=== PATIENT | male | born 1945 | race Caucasian/White ===

== ENCOUNTER 2016-07-15 19:32 | Inpatient (IN) | payer OTHER ==
[~2016-07-15] VITALS: Ht 172.7 cm; Wt 122.5 kg
[2016-07-15] MEDS ORDERED: ACETAMINOPHEN 500 MG TABLET PO ONE (20:00)
[2016-07-15] MEDS ORDERED: IV NORMAL SALINE 1000ML BAG 1,000 ML IV ONE ×2 (20:00)
[2016-07-15] MEDS ORDERED: CEFTRIAXONE 1GM IVPB FOR OMNI 50 ML IV ONE (20:00)
[2016-07-15 20:16] LABS: BASO % 1 % (0-3); EOS % 1 % (0-3); LYMPH # 0.8 x10^3/uL (1.0-4.8); LYMPH % 12 % (24-48); MEAN CORPUSCULAR HEMOGLOBIN 32 pg (25-35); MEAN CORPUSCULAR HGB CONC 33 g/dL (31-37); MEAN CORPUSCULAR VOLUME 95 fL (79-100); MONO % 12 % (0-9); NEUT % 75 % (31-73); PLATELET COUNT 189 x10^3/uL (140-400); RED BLOOD COUNT 4.44 x10^6/uL (4.30-5.70); RED CELL DISTRIBUTION WIDTH 13.2 % (11.5-14.5); WHITE BLOOD COUNT 7.4 x10^3/uL (4.0-11.0)
[2016-07-15 20:27] LABS: CALCIUM 8.8 mg/dL (8.5-10.1); CREATININE 0.9 mg/dL (0.7-1.3); GFR 83.7; POTASSIUM 4.1 mmol/L (3.5-5.1)
[2016-07-15 20:30] LABS: BILIRUBIN,URINE NEGATIVE (NEG); GLUCOSE,URINE NEGATIVE (NEG); NITRITE,URINE NEGATIVE (NEG); PH,URINE 7.5; PROTEIN,URINE NEGATIVE (NEG-TRACE); UROBILINOGEN,URINE 0.2 mg/dL (0.2 mg/dL)
[2016-07-15 20:33] LABS: ALBUMIN 3.8 g/dL (3.4-5.0); ALBUMIN/GLOBULIN RATIO 1.1 (1.0-1.7); TOTAL BILIRUBIN 0.5 mg/dL (0.2-1.0); TOTAL PROTEIN 7.2 g/dL (6.4-8.2)
[2016-07-15 20:56] LABS: OBC FLU VALID
[2016-07-15 20:58] LABS: BACTERIA,URINE 0 /HPF (0-FEW); RBC,URINE OCC /HPF (0-2); SQUAMOUS EPITHELIAL CELL,UR OCC /LPF; WBC,URINE OCC /HPF (0-4)
[2016-07-15] MEDS ORDERED: ACETAMINOPHEN 325 MG TABLET. PO PRN (21:45)
[2016-07-15] MEDS ORDERED: ONDANSETRON PF 4 MG/2 ML VIAL. IV PRN (21:45)
--- NOTE | 2016-07-15 22:15 | PHYS DOC ---
Past Medical History Past Medical History: GERD, High Cholesterol, Other Additional Past Medical Histor: pre diabetes, protein in urine Past Surgical History: Knee Replacement Alcohol Use: Heavy Additional Information: a beer every day Drug Use: None Adult General Chief Complaint Chief Complaint: Congestion HPI HPI 71-year-old male presents with several day history of progressive cough and congestion. He states he is had fever and chills today. He states his temperature was as high as 103 at home. He also complains of body aches. He states his cough is productive of meyer sputum. He states no one else at home is been sick. [] Review of Systems Review of Systems Constitutional: Denies fever or chills [] Eyes: Denies change in visual acuity, redness, or eye pain [] HENT: Denies nasal congestion or sore throat [] Respiratory: Per history of present illness [] Cardiovascular: No additional information not addressed in HPI [] GI: Denies abdominal pain, nausea, vomiting, bloody stools or diarrhea [] : Denies dysuria or hematuria [] Musculoskeletal: Denies back pain or joint pain [] Integument: Denies rash or skin lesions [] Neurologic: Denies headache, focal weakness or sensory changes [] Endocrine: Denies polyuria or polydipsia [] Current Medications Current Medications Current Medications Medications (Trade) Dose Ordered Sig/Joanie Start Time Stop Time Status Last Admin Dose Admin Acetaminophen 1000 mg 1,000 mg 1X ONCE 07/15/16 20:00 07/15/16 20:03 DC 07/15/16 20:18 1,000 MG Ceftriaxone Sodium 50 ml @ 100 mls/hr 1X ONCE 07/15/16 20:00 07/15/16 20:29 DC 07/15/16 20:18 100 MLS/HR Sodium Chloride (Iv Sodium Chloride 0.9% 1000ml Bag) 1,000 ml @ 1,000 mls/hr 1X ONCE 07/15/16 20:00 07/15/16 20:59 DC 07/15/16 21:38 1,000 MLS/HR Allergies Allergies Allergies Coded Allergies Type Severity Reaction Last Updated Verified amoxicillin Allergy Intermediate 07/15/16 Yes azithromycin Allergy Intermediate 07/15/16 Yes ciprofloxacin Allergy Intermediate 07/15/16 Yes Physical Exam Physical Exam Constitutional: Well developed, well nourished, no acute distress, non-toxic appearance. [] HENT: Normocephalic, atraumatic, bilateral external ears normal, oropharynx moist, no oral exudates, nose normal. [] Eyes: PERRLA, EOMI, conjunctiva normal, no discharge. [] Neck: Normal range of motion, no tenderness, supple, no stridor. [] Cardiovascular:Heart rate regular rhythm, no murmur [] Lungs & Thorax: Bilateral breath sounds clear to auscultation [] Abdomen: Bowel sounds normal, soft, no tenderness, no masses, no pulsatile masses. [] Skin: Warm, dry, no erythema, no rash. [] Back: No tenderness, no CVA tenderness. [] Extremities: No tenderness, no cyanosis, no clubbing, ROM intact, no edema. [] Neurologic: Alert and oriented X 3, normal motor function, normal sensory function, no focal deficits noted. [] Psychologic: Affect normal, judgement normal, mood normal. [] Current Patient Data Vital Signs Vital Signs Date Time Temp Pulse Resp B/P Pulse Ox O2 Delivery O2 Flow Rate FiO2 07/15/16 21:22 99.5 107 22 140/75 96 Room Air 99.5 Lab Values Laboratory Tests Test 07/15/16 19:46 07/15/16 19:55 07/15/16 19:58 07/15/16 20:00 Urine Color Yellow Urine Clarity Clear Urine pH 7.5 Urine Specific [place] 1.015 Urine Protein Negativemg/dL (NEG-TRACE) Urine Glucose (UA) Negativemg/dL (NEG) Urine Ketones (Stick) Negativemg/dL (NEG) Urine Blood Negative (NEG) Urine Nitrite Negative (NEG) Urine Bilirubin Negative (NEG) Urine Urobilinogen Dipstick 0.2mg/dL (0.2 mg/dL) Urine Leukocyte Esterase Negative (NEG) Urine RBC Occ/HPF (0-2) Urine WBC Occ/HPF (0-4) Urine Squamous Epithelial Cells Occ/LPF Urine Bacteria 0/HPF (0-FEW) Urine Mucus Slight/LPF Influenza Type A Antigen Negative (NEGATIVE) Influenza Type B Antigen Negative (NEGATIVE) Sodium Level 142mmol/L (136-145) Potassium Level 4.1mmol/L (3.5-5.1) Chloride Level 105mmol/L (98-107) Carbon Dioxide Level 28mmol/L (21-32) Anion Gap 9 (6-14) Blood Urea Nitrogen 15mg/dL (8-26) Creatinine 0.9mg/dL (0.7-1.3) Estimated GFR (Cockcroft-Gault) 83.7 BUN/Creatinine Ratio 17 (6-20) Glucose Level 108mg/dL (70-99) H Calcium Level 8.8mg/dL (8.5-10.1) Total Bilirubin 0.5mg/dL (0.2-1.0) Aspartate Amino Transferase (AST) 15U/L (15-37) Alanine Aminotransferase (ALT) 31U/L (16-63) Alkaline Phosphatase 52U/L (46-116) Total Protein 7.2g/dL (6.4-8.2) Albumin 3.8g/dL (3.4-5.0) Albumin/Globulin Ratio 1.1 (1.0-1.7) White Blood Count 7.4x10^3/uL (4.0-11.0) Red Blood Count 4.44x10^6/uL (4.30-5.70) Hemoglobin 14.0g/dL (13.0-17.5) Hematocrit 42.0% (39.0-53.0) Mean Corpuscular Volume 95fL (79-100) Mean Corpuscular Hemoglobin 32pg (25-35) Mean Corpuscular Hemoglobin Concent 33g/dL (31-37) Red Cell Distribution Width 13.2% (11.5-14.5) Platelet Count 189x10^3/uL (140-400) Neutrophils (%) (Auto) 75% (31-73) H Lymphocytes (%) (Auto) 12% (24-48) L Monocytes (%) (Auto) 12% (0-9) H Eosinophils (%) (Auto) 1% (0-3) Basophils (%) (Auto) 1% (0-3) Neutrophils # (Auto) 5.5x10^3uL (1.8-7.7) Lymphocytes # (Auto) 0.8x10^3/uL (1.0-4.8) L Monocytes # (Auto) 0.9x10^3/uL (0.0-1.1) Eosinophils # (Auto) 0.0x10^3/uL (0.0-0.7) Basophils # (Auto) 0.0x10^3/uL (0.0-0.2) Lactic Acid Level 1.4mmol/L (0.4-2.0) Laboratory Tests 07/15/16 20:00 Laboratory Tests 07/15/16 19:58 EKG EKG [EKG: Sinus tachycardia rate of [address]-T changes] Radiology/Procedures Radiology/Procedures [] Impressions: Chest x-ray: Negative exam as interpreted by me Course & Med Decision Making Course & Med Decision Making Pertinent Labs and Imaging studies reviewed. (See chart for details) [71-year-old male presented to the emergency department with several concerning symptoms including fever and tachycardia. He also had respiratory issues. He was given DuoNeb treatments and IV fluids and did feel better but he was still a bit hypoxic and tachycardic. I did not note an elevated white blood cell count and his chest x-ray was clear. Given the fact that he remained tachycardic I felt like it was in his best interest to stay in the hospital for further evaluation and aggressive respiratory treatments. With Dr. Campbell who agreed to accept the patient for admission.] Dragon Disclaimer Dragon Disclaimer This electronic medical record was generated, in whole or in part, using a voice recognition dictation system. Departure Departure Impression: Primary Impression: Bronchitis Disposition: 09 ADMITTED INPATIENT Admitting Physician: Nathaniel Llanes Condition: STABLE Referrals: NATHANIEL CAMPBELL MD (PCP) VERENICE PICHARDO DO Jul 15, 2016 22:15
--- NOTE | 2016-07-15 23:05 | ACF ---
Admission Forms Criteria TELEMETRY CARE Telemetry Admission Guidelines (Place 'X' for any and all applicable criteria): Admission to telemetry [A] may be indicated for ANY ONE of the following(1)(2)(3 )(4)(5): [X]I. Cardiac disease, including ANY ONE of the following (9)(10)(11)(12)(13 ): [ ]a) Postacute ND [ ]b) Low-risk patients with ST-segment elevation ND who have undergone successful percutaneous coronary intervention [ ]c) Unstable angina [ ]d) Suspected ND (until it is ruled out) [ ]e) Post cardiac surgery (first 48 to 72 hours unless complications occur) [X]f) Acute arrhythmias (including significant tachycardia or bradycardia) [B] [ ]g) Firing of an implantable cardioverter defibrillator [C] [ ]h) Suspected pacemaker or implantable cardioverter defibrillator malfunction (10) [ ]i) New administration or adjustment of an antiarrhythmic drug [D ] [ ]j) Child admitted for acute congestive heart failure [ ]j) Long QT syndrome [ ]k) Advanced heart block (eg, second-degree Mobitz type II, third- degree heart block) [ ]l) Acute myocarditis or pericarditis [ ]m) Short-term (ambulatory or inpatient) monitoring after a cardiac procedure as indicated by ANY ONE of the following [E]: [ ]i) Electrophysiologic studies [ ]ii) Percutaneous coronary intervention with stent placement [ ]iii) Pacemaker placement with cardiac conduction defect [ ]iv) Implantable cardiac defibrillator placement [ ]II. Drug overdose or poisoning with substance that causes arrhythmias or QT prolongation (eg, phenothiazines, sympathomimetic agents, cyclic antidepressants, digitalis, antiarrhythmic drugs)(15) [ ]III. Short-term (ambulatory or inpatient) monitoring after therapeutic or diagnostic procedure requiring conscious sedation or anesthesia (eg, endoscopy, elective cardioversion) [ ]IV. Acute cerebrovascular even[F](18) [ ]V. Massive blood transfusion (eg, at least 10 units of packed red blood cells in 24 hours) [ ]. Variceal bleeding after endoscopy, sclerotherapy, or IV vasopressin [ ]VII. Uncorrected electrolyte abnormalities associated with an increased risk of dangerous arrhythmia [G]; examples include [ ]a) Hyperkalemia with attributable ECG changes [ ]b) Potassium greater than 6.5 mmol/L (mEq/L) in a patient without history of chronic renal disease [ ]c) Prolonged QT attributed to hypokalemia, hypomagnesemia, or hypocalcemia [ ]VIII.Unexplained syncope or other neurologic event suspected of being due to arrhythmia due to a finding that increases risk; examples include(19)(20)(21): [ ]a) High-risk ECG findings (eg, bifascicular block, bradycardia, abnormal QT interval, ventricular pre- excitation) [ ]b) History of previous syncope due to arrhythmia [ ]c) Abnormal ventricular function (eg, reduced ejection fraction ) [ ]d) Exertional or supine syncope [ ]e) Concerning syncope characteristics (eg, sudden loss of consciousness without prodrome) [ ]f) Family history of sudden [ ]g) Use of arrhythmogenic medication [ ]h) Suspected cardiac ischemia [ ]i) Known channelopathy (eg, long QT syndrome, Brugada syndrome, or catecholaminergic paroxysmal ventricular tachycardia) [ ]j) Known structural heart disease (eg, hypertrophic cardiomyopathy , severe valvular disease) [ ]k) Palpitations preceding syncope The original [employer] content created by [employer] has been revised. The portions of the content which have been revised are identified through the use of italic text or in bold, and [employer] has neither reviewed nor approved the modified material. All other unmodified content is copyright [employer]. Please see references footnoted in the original [employer] edition 2016 Admission Criteria Met?: Yes ALTHEA MCKENZIE Jul 15, 2016 23:05
[2016-07-15] MEDS: IV NORMAL SALINE 1000ML BAG 1,000 ML IV SCH (23:34)
[2016-07-15] MEDS ORDERED: METF500T4 PO (23:58)
[2016-07-15] MEDS ORDERED: ESOM40CA PO (23:58)
[2016-07-15] MEDS ORDERED: ENAL10TA PO (23:58)
[2016-07-15] MEDS ORDERED: ASPI81TA2 PO (23:58)
[2016-07-15] MEDS ORDERED: UBID200C4 PO (23:58)
[2016-07-15] MEDS ORDERED: PRAV40TA2 PO (23:58)
[2016-07-16] VITALS (8 sets, daily range): BP systolic 95–141; BP diastolic 72–92
[2016-07-16] MEDS: IBUPROFEN 600 MG TABLET. PO PRN ×2 (00:29→09:12)
[2016-07-16 05:28] LABS: BASO % 1 % (0-3); EOS % 1 % (0-3); HEMATOCRIT 39.3 % (39.0-53.0); HEMOGLOBIN 13.2 g/dL (13.0-17.5); LYMPH # 0.9 x10^3/uL (1.0-4.8); LYMPH % 12 % (24-48); MEAN CORPUSCULAR HEMOGLOBIN 31 pg (25-35); MEAN CORPUSCULAR HGB CONC 34 g/dL (31-37); MEAN CORPUSCULAR VOLUME 93 fL (79-100); MONO % 10 % (0-9); NEUT % 77 % (31-73); PLATELET COUNT 172 x10^3/uL (140-400); RED BLOOD COUNT 4.21 x10^6/uL (4.30-5.70); RED CELL DISTRIBUTION WIDTH 13.3 % (11.5-14.5); WHITE BLOOD COUNT 7.3 x10^3/uL (4.0-11.0)
[2016-07-16] MEDS: IV NORMAL SALINE 1000ML BAG 1,000 ML IV SCH ×3 (05:39→19:45)
[2016-07-16 05:47] LABS: CALCIUM 8.3 mg/dL (8.5-10.1); CREATININE 0.8 mg/dL (0.7-1.3); GFR 95.8; POTASSIUM 4.2 mmol/L (3.5-5.1)
--- NOTE | 2016-07-16 07:07 | EKG ---
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 INCOMPLETE RBBB MISSING LEAD V4 Electronically Signed On 07-17-2016 20:50:52 CDT by April Blank
--- NOTE | 2016-07-16 07:57 | RAD ---
Indication: Fever. Technique: AP portable chest radiograph was obtained. Comparison is from October 05, 2014. Findings: The lungs are clear. The heart is not enlarged allowing for portable technique. There is no heart failure. Bony structures are intact. Leads overlie the patient. Impression: No acute thoracic findings.
[2016-07-16] MEDS: IPRATRPIUM/ALBUTEROL 0.5/2.5MG 3 ML NEBU. NEB SCH ×4 (08:41→20:52)
--- NOTE | 2016-07-16 13:54 | PDOC ---
Provider Note Provider Note see admission H&P dictation # GRABIEL VOSS MD Jul 16, 2016 13:54
[2016-07-16] MEDS ORDERED: ALBUTEROL SULFATE 2.5 MG/3 ML NEBU. NEB PRN (14:00)
[2016-07-16] MEDS ORDERED: GUAIFENESIN/CODEINE 100mg/10mg 5 ML LIQUID. PO PRN ×2 (14:00)
[2016-07-16] MEDS: PREDNISONE 10 MG TABLET PO SCH (14:09)
[2016-07-16] MEDS: UBIDECARENONE 50 MG CAPSULE. PO SCH (14:10)
[2016-07-16] MEDS: PANTOPRAZOLE 40 MG TABLET. PO SCH (14:10)
[2016-07-16] MEDS: LISINOPRIL 10 MG TABLET PO SCH (14:11)
[2016-07-16] MEDS: GUAIFENESIN DM 200MG/20MG 10 ML SYRUP. PO PRN (15:59)
[2016-07-16] MEDS ORDERED: CEFTRIAXONE SODIUM 1 GM in IV NORMAL SALINE 50ML 50 ML IV SCH (20:00)
[2016-07-16] MEDS ORDERED: ATORVASTATIN CALCIUM 10 MG TABLET. PO SCH (21:00)
[2016-07-16] MEDS ORDERED: ASPIRIN 81 MG TAB.CHEW PO SCH (21:00)
[2016-07-17 03:38] VITALS: BP 134/88
[2016-07-17 07:00] VITALS: BP 133/77
[2016-07-17] MEDS: IPRATRPIUM/ALBUTEROL 0.5/2.5MG 3 ML NEBU. NEB SCH ×3 (07:06→15:00)
[2016-07-17] MEDS: PANTOPRAZOLE 40 MG TABLET. PO SCH (07:21)
[2016-07-17] MEDS ORDERED: METFORMIN 500 MG TABLET. PO SCH (08:00)
--- NOTE | 2016-07-17 08:17 | PDOC ---
OBJECTIVE Vital Signs Vital Signs Date Time Temp Pulse Resp B/P Pulse Ox O2 Delivery O2 Flow Rate FiO2 07/17/16 07:07 96 Room Air 07/17/16 07:00 98.6 101 16 133/77 94 Room Air 98.6 07/17/16 03:38 98.3 94 20 134/88 95 Room Air 98.3 07/16/16 23:00 98.5 112 18 122/82 96 Room Air 98.5 07/16/16 20:53 97 Room Air 07/16/16 20:53 97 Room Air 07/16/16 19:45 Room Air 07/16/16 19:31 98.4 100 20 136/79 95 Room Air 98.4 07/16/16 15:31 Room Air 07/16/16 15:00 98.7 97 16 95/72 93 Room Air 98.7 07/16/16 14:11 108 133/83 07/16/16 11:14 Room Air 07/16/16 10:57 98.8 108 16 133/83 93 Room Air 98.8 07/16/16 08:44 95 Room Air 07/16/16 08:25 Room Air I & O Intake and Output 07/17/16 07:00 Intake Total 1270 ml Output Total 550 ml Balance 720 ml Intake Oral 1270 ml Output Urine Total 550 ml # Voids 3 ASSESSMENT/PLAN Assessment/Plan 1. COPD exacerbation Problems: GRABIEL VOSS MD Jul 17, 2016 08:17
[2016-07-17] MEDS: UBIDECARENONE 50 MG CAPSULE. PO SCH (09:01)
[2016-07-17] MEDS: LISINOPRIL 10 MG TABLET PO SCH (09:02)
[2016-07-17] MEDS: GUAIFENESIN DM 200MG/20MG 10 ML SYRUP. PO PRN ×2 (09:03→14:06)
[2016-07-17] MEDS: PREDNISONE 10 MG TABLET PO SCH (09:03)
[2016-07-17 11:00] VITALS: BP 146/84
[2016-07-17 15:08] VITALS: BP 144/87
--- NOTE | 2016-07-17 15:28 | RAD ---
Indication: Dyspnea, cough, hemoptysis. Technique: Axial images and coronal and sagittal reformatted images are provided. No comparison is available. One or more of the following individualized dose reduction techniques were utilized for this examination: 1. Automated exposure control 2. Adjustment of the mA and/or kV according to patient size 3. Use of iterative reconstruction technique Findings: There are calcified granulomas. There is minimal atelectasis in the lung bases. There is no consolidation. There is no pleural effusion. Central airways are patent. There is atheromatous disease in the thoracic aorta. The heart is not enlarged. Coronary artery calcifications are noted. Calcified mediastinal and right hilar lymph nodes are present. Indeterminate low-density lesions within the liver measure up to 23 mm in size, statistically most likely cysts. There are benign calcifications in the spleen. There are mild degenerative changes in the spine. Impression: 1. Granulomatous disease. 2. No acute thoracic findings.
--- NOTE | 2016-07-17 18:11 | DISCH ---
DISCHARGE INSTRUCTIONS Condition on Discharge Condition on Discharge: Stable Activity After Discharge Activity Instructions for Disc: Activity as tolerated Diet after Discharge Diet after Discharge: No Added Sugar Contacting the [facility] after DC Call your doctor for: If your condition worsens Follow-Up Follow up with: Dr Campbell in 1-2 weeks Follow Up With: Repeat scan of liver in 2-3 months GRABIEL VOSS MD Jul 17, 2016 18:11
[2016-07-17] MEDS ORDERED: DOXY100T PO (18:28)
[2016-07-17] MEDS ORDERED: VENTOLIN HFA18 GM INH (18:28)
[2016-07-17] MEDS ORDERED: PRED20TA PO (18:28)
--- NOTE | 2016-07-17 18:29 | PDOC ---
Provider Note Provider Note See discharge summary dictation# GRABIEL VOSS MD Jul 17, 2016 18:29
== END 2016-07-17 19:41 | disposition home or self-care (01) | DRG 192 ==
LOC: ER 19:32 → 5 SOUTH 21:40
PROVIDERS: ADMIT Family Medicine; ATTEND Family Medicine
DX: J44.1 Chronic obstructive pulmonary disease with (acute) exacerbation (principal); E78.00 Pure hypercholesterolemia, unspecified; K21.9 Gastro-esophageal reflux disease without esophagitis; Z96.659 Presence of unspecified artificial knee joint; Z88.1 Allergy status to other antibiotic agents; Z79.899 Other long term (current) drug therapy
CPT/HCPCS: 36415; 71010; 71250; 80048; 80053; 81001; 83605; 85027; 87040; 87804; 93005; 94250; 94640; 94760; 96365; J0690; J0696; J7030; J7512; J7620; 99285-25

== ENCOUNTER → 2016-10-15 | Outpatient (CLI) | payer OTHER ==
[~2016-10-15] MED LIST: ASPI-630 PO; DOXY100T PO; ENAL10TA PO; ESOM40CA PO; METF500T4 PO; PRAV40TA2 PO; PRED20TA PO; UBID200C7 PO; VENTOLIN HFA18 GM INH
--- NOTE | 2016-10-15 16:24 | KCIC ---
Limited abdomen ultrasound HISTORY: Liver cyst. COMPARISON: None. FINDINGS: The inferior vena cava poorly visualized. Pancreas poorly visualized. Liver demonstrates coarse echogenicity, likely due to fatty infiltration. Small hypoechoic lesion of the liver near the gallbladder measures 16 mm diameter. This demonstrates some posterior acoustic enhancement and is compatible with a small cyst. No evidence of significant hepatomegaly. No evidence of cholelithiasis or gallbladder wall thickening. Right kidney measures 12.9 cm longitudinal without hydronephrosis. Common bile duct measures 2 mm diameter. IMPRESSION: 1. Small hepatic lesion most compatible with a small 16 mm cyst. 2. Findings compatible with fatty infiltration of the liver. Electronically signed by: Ceasar Bauman MD (10/15/2016 4:22 PM)
== END | disposition home or self-care (01) ==
LOC: KCIC US 09:15
PROVIDERS: ATTEND Family Medicine
DX: K76.89 Other specified diseases of liver (principal)
CPT/HCPCS: 76705

== ENCOUNTER → 2017-10-23 | Outpatient (CLI) | payer OTHER | END | disposition home or self-care (01) | LOC: KCIC US 07:40 | DX: K76.0 Fatty (change of) liver, not elsewhere classified (principal); E78.00 Pure hypercholesterolemia, unspecified; J44.1 Chronic obstructive pulmonary disease with (acute) exacerbation; R16.0 Hepatomegaly, not elsewhere classified | CPT/HCPCS: 76705 ==

== ENCOUNTER 2018-01-06 19:04 | Inpatient (IN) | payer OTHER ==
[~2018-01-06] VITALS: Ht 175.3 cm; Wt 130.7 kg
[~2018-01-06 19:04] MED LIST changes: +METF500T16 PO; -METF500T4 PO
[2018-01-06] MEDS ORDERED: IV NORMAL SALINE 1000ML BAG 1,000 ML IV SCH (19:25)
[2018-01-06] MEDS ORDERED: ACETAMINOPHEN 500 MG TABLET PO ONE (19:30)
--- NOTE | 2018-01-06 19:43 | PHYS DOC ---
Past Medical History Past Medical History: GERD, High Cholesterol, Other Additional Past Medical Histor: pre diabetes, protein in urine Past Surgical History: Knee Replacement Alcohol Use: Heavy Drug Use: None Adult General Chief Complaint Chief Complaint: FEVER HPI HPI Patient is a 72-year-old male who presents to the emergency department for evaluation. He states that since Friday, he has had low-grade fevers, he started with a mild sore throat, but that has improved, and then he developed nasal congestion, with a cough mostly productive of whitish sputum. He did not have any pain. His fever was elevated this morning, and a temperature of 101. He went to see his primary care provider's office today, and was given a dose of steroids by the nurse practitioner. She states that his lungs and ears look clear. The patient states he felt warm at home and checked his temperature and was 104. He does presents to the emergency department for evaluation. He denies any pain, has not had any nausea, vomiting, abdominal pain, chest pain, or any urinary symptoms. He denies any severe headache. He has not had any confusion or mental status changes. There are no alleviating, or exacerbating factors to his symptoms otherwise. He has not taken any antipyretics. He did just return from a cruise to [place] and the [facility], about a week ago. Review of Systems Review of Systems Constitutional: Denies lethargy or or chills [] Eyes: Denies change in visual acuity, redness, or eye pain [] HENT: Reports nasal congestion or sore throat [] Respiratory: Denies shortness of breath [] Cardiovascular:The patient denies any shortness of breath, chest pain, palpitations, or orthopnea [] GI: Denies abdominal pain, nausea, vomiting, bloody stools or diarrhea [] : Denies dysuria or hematuria [] Musculoskeletal: Denies back pain or joint pain [] Integument: Denies rash or skin lesions [] Neurologic: Denies headache, focal weakness or sensory changes [] Endocrine: Denies polyuria or polydipsia [] All other systems were reviewed and found to be within normal limits, except as documented in this note. Current Medications Current Medications Current Medications Medications (Trade) Dose Ordered Sig/Joanie Start Time Stop Time Status Last Admin Dose Admin Acetaminophen (Tylenol) 650 mg PRN Q4HRS PRN 01/06/18 20:45 9/5/18 20:44 Ceftriaxone Sodium 50 ml @ 100 mls/hr 1X ONCE 01/06/18 20:30 01/06/18 20:59 Doxycycline Hyclate 100 mg/ Dextrose 100 ml @ 50 mls/hr ONCE ONCE 01/06/18 20:30 01/06/18 22:29 Sodium Chloride 1,000 ml @ 1,000 mls/hr Q1H 01/06/18 19:25 01/06/18 20:24 DC 01/06/18 20:04 1,000 MLS/HR Allergies Allergies Allergies Coded Allergies Type Severity Reaction Last Updated Verified amoxicillin Allergy Intermediate 07/15/16 Yes azithromycin Allergy Intermediate 07/15/16 Yes ciprofloxacin Allergy Intermediate 07/15/16 Yes Physical Exam Physical Exam PHYSICAL EXAM: CONSTITUTIONAL: Well developed, well nourished HEAD: normocephalic, atraumatic EENT: PERRL, EOMI. Conjunctivae normal color, sclerae non-icteric; moist mucous membranes. Tympanic membranes are normal bilaterally. Oropharynx is nonerythematous. NECK: Supple, non-tender; no meningismus. LUNGS: Lungs CTA, breathing even and unlabored. Normal air movement. HEART: Regular tachycardia, no murmur CHEST: No deformity; non-tender ABDOMEN: The abdomen is soft, and non-tender, no masses or bruits. EXTREM: Normal ROM; no deformity, no calf tenderness. Normal pulses palpable in all extremities. There is no pedal edema. SKIN: No rash; no diaphoresis NEURO: Alert; normal speech and cognition; CN's grossly intact; strength grossly intact without focal deficit. BACK: No CVA TTP. Current Patient Data Vital Signs Vital Signs Date Time Temp Pulse Resp B/P (MAP) Pulse Ox O2 Delivery O2 Flow Rate FiO2 01/06/18 19:25 101.7 140 28 148/91 (110) 95 Room Air 101.7 Lab Values Laboratory Tests Test 01/06/18 19:51 01/06/18 20:05 Influenza Type A Antigen Negative (NEGATIVE) Influenza Type B Antigen Negative (NEGATIVE) White Blood Count 9.3 x10^3/uL (4.0-11.0) Red Blood Count 3.98 x10^6/uL (4.30-5.70) L Hemoglobin 13.2 g/dL (13.0-17.5) Hematocrit 38.2 % (39.0-53.0) L Mean Corpuscular Volume 96 fL (79-100) Mean Corpuscular Hemoglobin 33 pg (25-35) Mean Corpuscular Hemoglobin Concent 35 g/dL (31-37) Red Cell Distribution Width 13.2 % (11.5-14.5) Platelet Count 203 x10^3/uL (140-400) Neutrophils (%) (Auto) 78 % (31-73) H Lymphocytes (%) (Auto) 11 % (24-48) L Monocytes (%) (Auto) 10 % (0-9) H Eosinophils (%) (Auto) 1 % (0-3) Basophils (%) (Auto) 0 % (0-3) Neutrophils # (Auto) 7.2 x10^3uL (1.8-7.7) Lymphocytes # (Auto) 1.0 x10^3/uL (1.0-4.8) Monocytes # (Auto) 0.9 x10^3/uL (0.0-1.1) Eosinophils # (Auto) 0.1 x10^3/uL (0.0-0.7) Basophils # (Auto) 0.0 x10^3/uL (0.0-0.2) Sodium Level 135 mmol/L (136-145) L Potassium Level 3.7 mmol/L (3.5-5.1) Chloride Level 101 mmol/L (98-107) Carbon Dioxide Level 27 mmol/L (21-32) Anion Gap 7 (6-14) Blood Urea Nitrogen 14 mg/dL (8-26) Creatinine 0.8 mg/dL (0.7-1.3) Estimated GFR (Cockcroft-Gault) 95.6 BUN/Creatinine Ratio 18 (6-20) Glucose Level 117 mg/dL (70-99) H Lactic Acid Level 1.6 mmol/L (0.4-2.0) Calcium Level 8.7 mg/dL (8.5-10.1) Magnesium Level 1.7 mg/dL (1.8-2.4) L Total Bilirubin 0.4 mg/dL (0.2-1.0) Aspartate Amino Transferase (AST) 16 U/L (15-37) Alanine Aminotransferase (ALT) 32 U/L (16-63) Alkaline Phosphatase 61 U/L (46-116) Troponin I Quantitative < 0.017 ng/mL (0.000-0.055) Total Protein 7.2 g/dL (6.4-8.2) Albumin 3.7 g/dL (3.4-5.0) Albumin/Globulin Ratio 1.1 (1.0-1.7) Lipase 112 U/L (73-393) Laboratory Tests 01/06/18 20:05 Laboratory Tests 01/06/18 20:05 EKG EKG [Sinus tachycardia at a rate of 129 bpm with occasional PVCs, borderline left axis deviation, normal intervals. There are no acute ischemic ST/T changes] Radiology/Procedures Radiology/Procedures [PROCEDURE: CHEST PA & LATERAL Examination: 2 views of chest. HISTORY: History of fever COMPARISON: 10/05/2014 FINDINGS: The cardiomediastinal silhouette grossly appears unremarkable. Mild airspace opacity identified in the right middle lobe lung likely atelectasis or infiltrate. IMPRESSION: Mild right middle lobe lung airspace opacity likely atelectasis or infiltrate. Follow-up to resolution. ] Course & Med Decision Making Course & Med Decision Making Pertinent Labs and Imaging studies reviewed. (See chart for details) [8:35 PM: The patient's condition remains stable, although he still remains tachycardic, but remains normotensive. Some of his chemistries and his lactic acid are still pending. His chest x-ray doesn't demonstrate a right middle lobe pneumonia, I reviewed the film, there is obscuration of his right heart border. I spoke with the hospitalist, who accepted the patient to the hospital for further evaluation and treatment.] Dragon Disclaimer Dragon Disclaimer This electronic medical record was generated, in whole or in part, using a voice recognition dictation system. Departure Departure Impression: Primary Impression: Community acquired bacterial pneumonia Disposition: ADMITTED INPATIENT Admitting Physician: Dallas Reyes Condition: STABLE Referrals: NATHANIEL ROBERTS MD (PCP) ELLI MOTLEY MD Jan 06, 2018 19:43
[2018-01-06 20:17] LABS: BASO % 0 % (0-3); EOS # 0.1 x10^3/uL (0.0-0.7); EOS % 1 % (0-3); HEMATOCRIT 38.2 % (39.0-53.0); HEMOGLOBIN 13.2 g/dL (13.0-17.5); LYMPH % 11 % (24-48); MEAN CORPUSCULAR HEMOGLOBIN 33 pg (25-35); MEAN CORPUSCULAR HGB CONC 35 g/dL (31-37); MEAN CORPUSCULAR VOLUME 96 fL (79-100); MONO # 0.9 x10^3/uL (0.0-1.1); MONO % 10 % (0-9); NEUT # 7.2 x10^3uL (1.8-7.7); NEUT % 78 % (31-73); PLATELET COUNT 203 x10^3/uL (140-400); RED BLOOD COUNT 3.98 x10^6/uL (4.30-5.70); RED CELL DISTRIBUTION WIDTH 13.2 % (11.5-14.5); WHITE BLOOD COUNT 9.3 x10^3/uL (4.0-11.0)
--- NOTE | 2018-01-06 20:29 | RAD ---
Examination: 2 views of chest. HISTORY: History of fever COMPARISON: 10/05/2014 FINDINGS: The cardiomediastinal silhouette grossly appears unremarkable. Mild airspace opacity identified in the right middle lobe lung likely atelectasis or infiltrate. IMPRESSION: Mild right middle lobe lung airspace opacity likely atelectasis or infiltrate. Follow-up to resolution. Electronically signed by: Brandan Weaver MD (01/06/2018 8:26 PM) [facility]
[2018-01-06 20:30] LABS: CALCIUM 8.7 mg/dL (8.5-10.1); CREATININE 0.8 mg/dL (0.7-1.3); GFR 95.6; POTASSIUM 3.7 mmol/L (3.5-5.1)
[2018-01-06] MEDS ORDERED: DOXYCYCLINE HYCLATE 100 MG in IV DEXTROSE 5% 100ML 100 ML IV ONE (20:30)
[2018-01-06 20:32] LABS: INFLUENZA A PATIENT NEGATIVE (NEGATIVE); INFLUENZA B PATIENT NEGATIVE (NEGATIVE)
[2018-01-06 20:45] LABS: ALBUMIN 3.7 g/dL (3.4-5.0); ALBUMIN/GLOBULIN RATIO 1.1 (1.0-1.7); MAGNESIUM 1.7 mg/dL (1.8-2.4); TOTAL BILIRUBIN 0.4 mg/dL (0.2-1.0); TOTAL PROTEIN 7.2 g/dL (6.4-8.2)
[2018-01-06] MEDS ORDERED: ACETAMINOPHEN 325 MG TABLET. PO PRN (20:45)
[2018-01-06] MEDS ORDERED: IV NORMAL SALINE 1000ML BAG 1,000 ML IV ONE (21:00)
[2018-01-06 21:03] LABS: BILIRUBIN,URINE NEGATIVE (NEG); CLARITY,URINE CLEAR; COLOR,URINE YELLOW; NITRITE,URINE NEGATIVE (NEG); PH,URINE 7.5; PROTEIN,URINE NEGATIVE (NEG-TRACE); UROBILINOGEN,URINE 0.2 mg/dL (0.2 mg/dL)
[2018-01-06 21:14] LABS: BACTERIA,URINE 0 /HPF (0-FEW); RBC,URINE RARE /HPF (0-2); WBC,URINE 0 /HPF (0-4)
[2018-01-06 21:15] LABS: SQUAMOUS EPITHELIAL CELL,UR OCC /LPF
[2018-01-06 23:42] VITALS: BP 137/88
[2018-01-07 03:00] VITALS: BP 133/81
[2018-01-07 05:08] LABS: BASO % 0 % (0-3); EOS # 0.2 x10^3/uL (0.0-0.7); EOS % 2 % (0-3); HEMATOCRIT 39.1 % (39.0-53.0); HEMOGLOBIN 13.5 g/dL (13.0-17.5); LYMPH # 0.9 x10^3/uL (1.0-4.8); LYMPH % 10 % (24-48); MEAN CORPUSCULAR HEMOGLOBIN 34 pg (25-35); MEAN CORPUSCULAR HGB CONC 35 g/dL (31-37); MEAN CORPUSCULAR VOLUME 97 fL (79-100); MONO # 0.8 x10^3/uL (0.0-1.1); MONO % 10 % (0-9); NEUT # 6.7 x10^3uL (1.8-7.7); NEUT % 78 % (31-73); PLATELET COUNT 193 x10^3/uL (140-400); RED BLOOD COUNT 4.04 x10^6/uL (4.30-5.70); RED CELL DISTRIBUTION WIDTH 12.8 % (11.5-14.5); WHITE BLOOD COUNT 8.6 x10^3/uL (4.0-11.0)
--- NOTE | 2018-01-07 05:25 | EKG ---
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
[2018-01-07 05:52] LABS: CREATININE 0.7 mg/dL (0.7-1.3); GFR 111.5; POTASSIUM 4.4 mmol/L (3.5-5.1)
[2018-01-07] MEDS: DOXYCYCLINE HYCLATE 100 MG in IV DEXTROSE 5% 100ML 100 ML IV SCH ×2 (07:54→20:20)
[2018-01-07 07:58] VITALS: BP 136/89
[2018-01-07] MEDS ORDERED: ATOR20TA58 PO (10:35)
[2018-01-07] MEDS ORDERED: ALBUTEROL SULFATE 2.5 MG/3 ML NEBU. NEB PRN (11:00)
[2018-01-07] MEDS ORDERED: ONDANSETRON PF 4 MG/2 ML VIAL. IV PRN (11:00)
[2018-01-07] MEDS ORDERED: ACETAMINOPHEN 325 MG TABLET. PO PRN (11:00)
[2018-01-07] MEDS ORDERED: MORPHINE SULFATE 2 MG/ML VIAL. IV PRN (11:00)
[2018-01-07] MEDS ORDERED: DOCUSATE SODIUM 100 MG CAPSULE. PO PRN (11:00)
[2018-01-07] MEDS ORDERED: traMADol 50 MG TABLET PO PRN (11:00)
[2018-01-07 11:30] VITALS: BP 131/81
[2018-01-07] MEDS: PANTOPRAZOLE 40 MG TABLET.DR. PO SCH (11:41)
[2018-01-07] MEDS: metFORMIN 500 MG TABLET PO SCH (11:41)
[2018-01-07] MEDS: IPRATRPIUM/ALBUTEROL 0.5/2.5MG 3 ML NEBU. NEB SCH ×4 (12:00→19:57)
[2018-01-07] MEDS ORDERED: NON FORMULARY ITEM (Albuterol Sulfate (Ventolin Hfa Inhaler) 2 PUFF) INH SCH (13:00)
--- NOTE | 2018-01-07 13:17 | PDOC1 ---
History and Physical Date of Admission Date of Admission 01/07/18 Identification/Chief Complaint Chief Complaint cough Source Source: Chart review, Patient History of Present Illness History of Present Illness HPI HPI Patient is a 72-year-old male who presents to the emergency department for evaluation of cough. pt started to cough from 3ds ago, went to see PCP on Friday, got some shot pt said it is not abx, dced home without abx. He cont feels fever, 104 at home and feels fatigue, cont severe cough, some sob , and come to ER. Has runny nose. T 101. 7 in ER. + chest pain with cough, no N/V . severe allergy to amoxicillin, cannot tell me the details for allergy for german and cipro and cannot tell me if can take any other abx. He did just return from a cruise to [place] and the [facility], about a week ago and felt fine when he came back. Past Medical History Cardiovascular: Hyperlipidemia Past Surgical History Past Surgical History: Total knee replacement Family History Family History: Hypertension Social History Smoke: Quit ALCOHOL: none Drugs: None Current Problem List Problem List Problems Medical Problems: (1) Community acquired bacterial pneumonia Status: Acute Current Medications Current Medications Current Medications Medications (Trade) Dose Ordered Sig/Joanie Start Time Stop Time Status Last Admin Dose Admin Acetaminophen (Tylenol) 650 mg PRN Q6HRS PRN 01/07/18 11:00 Albuterol Sulfate (Ventolin Neb Soln) 2.5 mg PRN Q2HR PRN 01/07/18 11:00 Albuterol/ Ipratropium (Duoneb) 3 ml RTQID 01/07/18 12:00 Aspirin (Children'S Aspirin) 81 mg HS 01/07/18 21:00 Atorvastatin Calcium (Lipitor) 20 mg HS 01/07/18 21:00 Ceftriaxone Sodium 50 ml @ 100 mls/hr 1X ONCE 01/06/18 20:30 01/06/18 20:59 DC 01/06/18 20:58 100 MLS/HR Docusate Sodium (Colace) 100 mg PRN DAILY PRN 01/07/18 11:00 Doxycycline Hyclate 100 mg/ Dextrose 100 ml @ 50 mls/hr ONCE ONCE 01/06/18 20:30 01/06/18 22:29 DC 01/06/18 21:25 50 MLS/HR Guaifenesin (Mucinex) 600 mg BID 01/07/18 11:30 01/07/18 11:41 600 MG Lactobacillus Rhamnosus (Culturelle) 1 cap BID 01/07/18 21:00 Metformin HCl (Glucophage) 500 mg DAILYAC 01/07/18 11:30 01/07/18 11:41 500 MG Morphine Sulfate (Morphine Sulfate) 2 mg PRN Q2HR PRN 01/07/18 11:00 Non-Formulary Medication (Albuterol Sulfate (Ventolin Hfa Inhaler)) 2 puff QID 01/07/18 13:00 UNV Non-Formulary Medication (Ubidecarenone (Co Q-10)) 200 mg DAILY 01/08/18 09:00 UNV Ondansetron HCl (Zofran) 4 mg PRN Q6HRS PRN 01/07/18 11:00 Pantoprazole Sodium (Protonix) 40 mg DAILYAC 01/07/18 11:30 01/07/18 11:41 40 MG Sodium Chloride 1,000 ml @ 125 mls/hr 1X ONCE 01/06/18 21:00 01/07/18 04:59 DC 01/06/18 21:22 125 MLS/HR Tramadol HCl (Ultram) 50 mg PRN Q6HRS PRN 01/07/18 11:00 Allergies Allergies Allergies Coded Allergies Type Severity Reaction Last Updated Verified amoxicillin Allergy Intermediate 07/15/16 Yes azithromycin Allergy Intermediate 07/15/16 Yes ciprofloxacin Allergy Intermediate 07/15/16 Yes ROS Review of System CONSTITUTIONAL: No fever or chills EYES: No recent changes SKIN: No rash or itching CARDIOVASCULAR: No chest pain, syncope, palpitations, or edema RESPIRATORY: No SOB or cough GASTROINTESTINAL: No nausea, vomiting or abdominal pain NEUROLOGICAL: No headaches or weakness ENDOCRINE: No cold or heat intolerance GENITOURINARY: No urgency or frequency of urination MUSCULOSKELETAL: No back pain or joint pain LYMPHATICS: No enlarged lymph nodes PSYCHIATRIC: No anxiety or depression Physical Exam Physical Exam GEN.: No apparent distress. Alert and oriented. HEENT: Head is normocephalic, atraumatic NECK: Supple. LUNGS: Clear to auscultation. HEART: RRR, S1, S2 present. Peripheral pulses intact ABDOMEN: Soft, nontender. Positive bowel sounds. EXTREMITIES: Without any cyanosis. NEUROLOGIC: Normal speech, normal tone PSYCHIATRIC: Normal affect, normal mood. SKIN: No ulcerations Vitals Vitals Vital Signs Date Time Temp Pulse Resp B/P (MAP) Pulse Ox O2 Delivery O2 Flow Rate FiO2 01/07/18 11:30 98.4 81 18 131/81 (98) 96 Room Air 98.4 01/06/18 22:37 2.0 Labs Labs Laboratory Tests Test 01/06/18 19:51 01/06/18 20:05 01/06/18 20:55 01/07/18 04:11 Influenza Type A Antigen Negative (NEGATIVE) Influenza Type B Antigen Negative (NEGATIVE) Group A Streptococcus Rapid Negative (NEGATIVE) White Blood Count 9.3 x10^3/uL (4.0-11.0) 8.6 x10^3/uL (4.0-11.0) Red Blood Count 3.98 x10^6/uL (4.30-5.70) 4.04 x10^6/uL (4.30-5.70) Hemoglobin 13.2 g/dL (13.0-17.5) 13.5 g/dL (13.0-17.5) Hematocrit 38.2 % (39.0-53.0) 39.1 % (39.0-53.0) Mean Corpuscular Volume 96 fL (79-100) 97 fL (79-100) Mean Corpuscular Hemoglobin 33 pg (25-35) 34 pg (25-35) Mean Corpuscular Hemoglobin Concent 35 g/dL (31-37) 35 g/dL (31-37) Red Cell Distribution Width 13.2 % (11.5-14.5) 12.8 % (11.5-14.5) Platelet Count 203 x10^3/uL (140-400) 193 x10^3/uL (140-400) Neutrophils (%) (Auto) 78 % (31-73) 78 % (31-73) Lymphocytes (%) (Auto) 11 % (24-48) 10 % (24-48) Monocytes (%) (Auto) 10 % (0-9) 10 % (0-9) Eosinophils (%) (Auto) 1 % (0-3) 2 % (0-3) Basophils (%) (Auto) 0 % (0-3) 0 % (0-3) Neutrophils # (Auto) 7.2 x10^3uL (1.8-7.7) 6.7 x10^3uL (1.8-7.7) Lymphocytes # (Auto) 1.0 x10^3/uL (1.0-4.8) 0.9 x10^3/uL (1.0-4.8) Monocytes # (Auto) 0.9 x10^3/uL (0.0-1.1) 0.8 x10^3/uL (0.0-1.1) Eosinophils # (Auto) 0.1 x10^3/uL (0.0-0.7) 0.2 x10^3/uL (0.0-0.7) Basophils # (Auto) 0.0 x10^3/uL (0.0-0.2) 0.0 x10^3/uL (0.0-0.2) Sodium Level 135 mmol/L (136-145) 140 mmol/L (136-145) Potassium Level 3.7 mmol/L (3.5-5.1) 4.4 mmol/L (3.5-5.1) Chloride Level 101 mmol/L (98-107) 104 mmol/L (98-107) Carbon Dioxide Level 27 mmol/L (21-32) 29 mmol/L (21-32) Anion Gap 7 (6-14) 7 (6-14) Blood Urea Nitrogen 14 mg/dL (8-26) 11 mg/dL (8-26) Creatinine 0.8 mg/dL (0.7-1.3) 0.7 mg/dL (0.7-1.3) Estimated GFR (Cockcroft-Gault) 95.6 111.5 BUN/Creatinine Ratio 18 (6-20) Glucose Level 117 mg/dL (70-99) 136 mg/dL (70-99) Lactic Acid Level 1.6 mmol/L (0.4-2.0) Calcium Level 8.7 mg/dL (8.5-10.1) 9.0 mg/dL (8.5-10.1) Magnesium Level 1.7 mg/dL (1.8-2.4) Total Bilirubin 0.4 mg/dL (0.2-1.0) Aspartate Amino Transf (AST/SGOT) 16 U/L (15-37) Alanine Aminotransferase (ALT/SGPT) 32 U/L (16-63) Alkaline Phosphatase 61 U/L (46-116) Creatine Kinase 205 U/L (39-308) Creatine Kinase MB (Mass) 1.3 ng/mL (0.0-3.6) Creatine Kinase MB Relative Index 0.6 % (0-4) Troponin I Quantitative < 0.017 ng/mL (0.000-0.055) SA-Iai-X-Type Natriuretic Peptide 287 pg/mL (0-124) Total Protein 7.2 g/dL (6.4-8.2) Albumin 3.7 g/dL (3.4-5.0) Albumin/Globulin Ratio 1.1 (1.0-1.7) Lipase 112 U/L (73-393) Urine Collection Type Unknown Urine Color Yellow Urine Clarity Clear Urine pH 7.5 Urine Specific [place] 1.020 Urine Protein Negative mg/dL (NEG-TRACE) Urine Glucose (UA) Negative mg/dL (NEG) Urine Ketones (Stick) Negative mg/dL (NEG) Urine Blood Negative (NEG) Urine Nitrite Negative (NEG) Urine Bilirubin Negative (NEG) Urine Urobilinogen Dipstick 0.2 mg/dL (0.2 mg/dL) Urine Leukocyte Esterase Negative (NEG) Urine RBC Rare /HPF (0-2) Urine WBC 0 /HPF (0-4) Urine Squamous Epithelial Cells Occ /LPF Urine Bacteria 0 /HPF (0-FEW) Urine Mucus Marked /LPF Laboratory Tests Test 01/06/18 19:51 01/06/18 20:05 01/06/18 20:55 01/07/18 04:11 Influenza Type A Antigen Negative (NEGATIVE) Influenza Type B Antigen Negative (NEGATIVE) Group A Streptococcus Rapid Negative (NEGATIVE) White Blood Count 9.3 x10^3/uL (4.0-11.0) 8.6 x10^3/uL (4.0-11.0) Red Blood Count 3.98 x10^6/uL (4.30-5.70) 4.04 x10^6/uL (4.30-5.70) Hemoglobin 13.2 g/dL (13.0-17.5) 13.5 g/dL (13.0-17.5) Hematocrit 38.2 % (39.0-53.0) 39.1 % (39.0-53.0) Mean Corpuscular Volume 96 fL (79-100) 97 fL (79-100) Mean Corpuscular Hemoglobin 33 pg (25-35) 34 pg (25-35) Mean Corpuscular Hemoglobin Concent 35 g/dL (31-37) 35 g/dL (31-37) Red Cell Distribution Width 13.2 % (11.5-14.5) 12.8 % (11.5-14.5) Platelet Count 203 x10^3/uL (140-400) 193 x10^3/uL (140-400) Neutrophils (%) (Auto) 78 % (31-73) 78 % (31-73) Lymphocytes (%) (Auto) 11 % (24-48) 10 % (24-48) Monocytes (%) (Auto) 10 % (0-9) 10 % (0-9) Eosinophils (%) (Auto) 1 % (0-3) 2 % (0-3) Basophils (%) (Auto) 0 % (0-3) 0 % (0-3) Neutrophils # (Auto) 7.2 x10^3uL (1.8-7.7) 6.7 x10^3uL (1.8-7.7) Lymphocytes # (Auto) 1.0 x10^3/uL (1.0-4.8) 0.9 x10^3/uL (1.0-4.8) Monocytes # (Auto) 0.9 x10^3/uL (0.0-1.1) 0.8 x10^3/uL (0.0-1.1) Eosinophils # (Auto) 0.1 x10^3/uL (0.0-0.7) 0.2 x10^3/uL (0.0-0.7) Basophils # (Auto) 0.0 x10^3/uL (0.0-0.2) 0.0 x10^3/uL (0.0-0.2) Sodium Level 135 mmol/L (136-145) 140 mmol/L (136-145) Potassium Level 3.7 mmol/L (3.5-5.1) 4.4 mmol/L (3.5-5.1) Chloride Level 101 mmol/L (98-107) 104 mmol/L (98-107) Carbon Dioxide Level 27 mmol/L (21-32) 29 mmol/L (21-32) Anion Gap 7 (6-14) 7 (6-14) Blood Urea Nitrogen 14 mg/dL (8-26) 11 mg/dL (8-26) Creatinine 0.8 mg/dL (0.7-1.3) 0.7 mg/dL (0.7-1.3) Estimated GFR (Cockcroft-Gault) 95.6 111.5 BUN/Creatinine Ratio 18 (6-20) Glucose Level 117 mg/dL (70-99) 136 mg/dL (70-99) Lactic Acid Level 1.6 mmol/L (0.4-2.0) Calcium Level 8.7 mg/dL (8.5-10.1) 9.0 mg/dL (8.5-10.1) Magnesium Level 1.7 mg/dL (1.8-2.4) Total Bilirubin 0.4 mg/dL (0.2-1.0) Aspartate Amino Transf (AST/SGOT) 16 U/L (15-37) Alanine Aminotransferase (ALT/SGPT) 32 U/L (16-63) Alkaline Phosphatase 61 U/L (46-116) Creatine Kinase 205 U/L (39-308) Creatine Kinase MB (Mass) 1.3 ng/mL (0.0-3.6) Creatine Kinase MB Relative Index 0.6 % (0-4) Troponin I Quantitative < 0.017 ng/mL (0.000-0.055) MG-Wuw-K-Type Natriuretic Peptide 287 pg/mL (0-124) Total Protein 7.2 g/dL (6.4-8.2) Albumin 3.7 g/dL (3.4-5.0) Albumin/Globulin Ratio 1.1 (1.0-1.7) Lipase 112 U/L (73-393) Urine Collection Type Unknown Urine Color Yellow Urine Clarity Clear Urine pH 7.5 Urine Specific [place] 1.020 Urine Protein Negative mg/dL (NEG-TRACE) Urine Glucose (UA) Negative mg/dL (NEG) Urine Ketones (Stick) Negative mg/dL (NEG) Urine Blood Negative (NEG) Urine Nitrite Negative (NEG) Urine Bilirubin Negative (NEG) Urine Urobilinogen Dipstick 0.2 mg/dL (0.2 mg/dL) Urine Leukocyte Esterase Negative (NEG) Urine RBC Rare /HPF (0-2) Urine WBC 0 /HPF (0-4) Urine Squamous Epithelial Cells Occ /LPF Urine Bacteria 0 /HPF (0-FEW) Urine Mucus Marked /LPF VTE Prophylaxis Ordered VTE Prophylaxis Devices: Yes VTE Pharmacological Prophylaxi: Yes Assessment/Plan Assessment/Plan bronchitis, likely virus infection doubt PNA hld GERD SIRS plan: doxy for now dvt ppx cont home meds CXR tmr dudayron, cough meds MANDEEP COLUNGA MD Jan 07, 2018 13:17
[2018-01-07] MEDS: ENOXAPARIN 40 MG/0.4 ML SYRINGE. SQ SCH ×2 (13:20→20:21)
[2018-01-07 15:14] VITALS: BP 132/80
[2018-01-07 19:37] VITALS: BP 146/88
[2018-01-07] MEDS: LACTOBACILLUS RHAMNOSUS GG 1 CAPSULE. PO SCH (20:20)
[2018-01-07] MEDS ORDERED: ASPIRIN CHEWABLE 81 MG TABLET. PO SCH (21:00)
[2018-01-07] MEDS ORDERED: ATORVASTATIN CALCIUM 20 MG TABLET PO SCH (21:00)
[2018-01-07 23:00] VITALS: BP 142/85
[2018-01-08 03:59] VITALS: BP 119/76
[2018-01-08 04:24] LABS: BASO % 0 % (0-3); EOS # 0.1 x10^3/uL (0.0-0.7); EOS % 1 % (0-3); HEMATOCRIT 37.9 % (39.0-53.0); HEMOGLOBIN 13.1 g/dL (13.0-17.5); LYMPH # 1.2 x10^3/uL (1.0-4.8); LYMPH % 14 % (24-48); MEAN CORPUSCULAR HEMOGLOBIN 33 pg (25-35); MEAN CORPUSCULAR HGB CONC 35 g/dL (31-37); MEAN CORPUSCULAR VOLUME 96 fL (79-100); MONO # 0.9 x10^3/uL (0.0-1.1); MONO % 11 % (0-9); NEUT # 6.2 x10^3uL (1.8-7.7); NEUT % 74 % (31-73); PLATELET COUNT 195 x10^3/uL (140-400); RED BLOOD COUNT 3.94 x10^6/uL (4.30-5.70); RED CELL DISTRIBUTION WIDTH 13.1 % (11.5-14.5); WHITE BLOOD COUNT 8.4 x10^3/uL (4.0-11.0)
[2018-01-08 04:51] LABS: CREATININE 0.7 mg/dL (0.7-1.3); GFR 111.5; POTASSIUM 4.8 mmol/L (3.5-5.1)
--- NOTE | 2018-01-08 07:48 | RAD ---
Portable chest, 01/08/2018: HISTORY: Pneumonia Comparison is made to a study from 01/06/2018. The heart size and pulmonary vascularity are normal. A minimal opacity previously seen in the medial segment of the right middle lobe has cleared with good definition of the right heart border on today's study. No acute infiltrate is seen. There is no evidence of pleural fluid. IMPRESSION: No acute cardiopulmonary abnormality is detected. Electronically signed by: Jaleel Doan MD (01/08/2018 7:45 AM) [facility]
[2018-01-08 07:55] VITALS: BP 136/75
[2018-01-08] MEDS ORDERED: NON FORMULARY ITEM (Ubidecarenone (Co Q-10) 200 MG) PO SCH (09:00)
[2018-01-08] MEDS: metFORMIN 500 MG TABLET PO SCH (09:39)
[2018-01-08] MEDS: PANTOPRAZOLE 40 MG TABLET.DR. PO SCH (09:39)
[2018-01-08] MEDS: LACTOBACILLUS RHAMNOSUS GG 1 CAPSULE. PO SCH (09:39)
[2018-01-08] MEDS: DOXYCYCLINE HYCLATE 100 MG in IV DEXTROSE 5% 100ML 100 ML IV SCH (09:40)
[2018-01-08] MEDS: ENOXAPARIN 40 MG/0.4 ML SYRINGE. SQ SCH (09:41)
[2018-01-08 11:12] VITALS: BP 134/80
[2018-01-08] MEDS: IPRATRPIUM/ALBUTEROL 0.5/2.5MG 3 ML NEBU. NEB SCH (11:18)
[2018-01-08] MEDS ORDERED: GUAI600T47 PO (11:27)
[2018-01-08] MEDS ORDERED: DOXY100T PO (11:27)
--- NOTE | 2018-01-08 13:40 | PDOC3 ---
Discharge Summary [facility] Date of Admission: Jan 06, 2018 Discharge Date: Jan 08, 2018 Admitting Diagnosis bronchitis, likely virus infection doubt PNA hld GERD SIRS Final Diagnosis Brief Hospital Course Patient is a 72-year-old male who presents to the emergency department for evaluation of cough. pt started to cough from 3ds ago, went to see PCP on Friday, got some shot pt said it is not abx, dced home without abx. He cont feels fever, 104 at home and feels fatigue, cont severe cough, some sob , and come to ER. Has runny nose. T 101. 7 in ER. + chest pain with cough, no N/V . severe allergy to amoxicillin, cannot tell me the details for allergy for german and cipro and cannot tell me if can take any other abx. He did just return from a cruise to [place] and the [facility], about a week ago and felt fine when he came back. Pt feels better today, no need NC, cough and sob much better, afebrile. repeated CXR didnot show PNA. this is likely viral infection. given has some meyer sputum, cont dox x5ds. dc time 35min. GEN.: No apparent distress. Alert and oriented. HEENT: Head is normocephalic, atraumatic NECK: Supple. LUNGS: Clear to auscultation. HEART: RRR, S1, S2 present. Peripheral pulses intact ABDOMEN: Soft, nontender. Positive bowel sounds. EXTREMITIES: Without any cyanosis. NEUROLOGIC: Normal speech, normal tone PSYCHIATRIC: Normal affect, normal mood. SKIN: No ulcerations Disposition home CONDITION AT DISCHARGE: Improved Scheduled Albuterol Sulfate (Ventolin Hfa Inhaler), 2 PUFF INH QID Aspirin (Aspirin), 1 TAB PO HS, (Reported) Atorvastatin Calcium (Atorvastatin Calcium), 20 MG PO HS, (Reported) Doxycycline Hyclate (Doxycycline Hyclate), 100 MG PO BID Enalapril Maleate (Enalapril Maleate), 1 TAB PO DAILY, (Reported) Esomeprazole Magnesium (Nexium Capsule), 1 CAP PO DAILY, (Reported) Guaifenesin (Mucinex), 600 MG PO BID Metformin Hcl (Metformin Hcl), 1 TAB PO DAILY, (Reported) Ubidecarenone (Co Q-10), 200 MG PO DAILY, (Reported) Discontinued Medications Doxycycline Hyclate (Doxycycline Hyclate), 1 TAB PO BID Discontinued Reason: NOT TAKING Pravastatin Sodium (Pravastatin Sodium), 1 TAB PO QHS, (Reported) Discontinued Reason: NOT TAKING Prednisone (Prednisone), 1 TAB PO DAILY Discontinued Reason: NOT TAKING MANDEEP COLUNGA MD Jan 08, 2018 13:40
[2018-01-08] MEDS ORDERED: DOXYCYCLINE HYCLATE 100 MG TABLET PO SCH (21:00)
== END 2018-01-08 12:40 | disposition home or self-care (01) | DRG 866 ==
LOC: ER 19:04 → 6 SOUTH 20:40
PROVIDERS: ADMIT Family Medicine; ATTEND Family Medicine
DX: B34.9 Viral infection, unspecified (principal); J98.11 Atelectasis; J20.8 Acute bronchitis due to other specified organisms; E78.00 Pure hypercholesterolemia, unspecified; E78.5 Hyperlipidemia, unspecified; K21.9 Gastro-esophageal reflux disease without esophagitis; Z96.659 Presence of unspecified artificial knee joint; Z82.49 Family history of ischemic heart disease and other diseases of the circulatory system; Z88.0 Allergy status to penicillin; Z88.8 Allergy status to other drugs, medicaments and biological substances; Z79.899 Other long term (current) drug therapy; Z79.82 Long term (current) use of aspirin; Z79.84 Long term (current) use of oral hypoglycemic drugs; Z88.1 Allergy status to other antibiotic agents
CPT/HCPCS: 36415; 71045; 71046; 80048; 80053; 81001; 82553; 83605; 83690; 83735; 83880; 84484; 85025; 87070; 87804; 87880; 93005; 94640; 96361; 96365; J0690; J1650; J3490; J7030; J7620; 99285-25

== ENCOUNTER → 2018-11-11 | Outpatient (CLI) | payer OTHER ==
[~2018-11-11] MED LIST changes: +ATOR20TA58 PO; +GUAI600T47 PO
--- NOTE | 2018-11-11 15:10 | KCIC ---
PQRS Compliance Statement: One or more of the following individualized dose reduction techniques were utilized for this examination: 1. Automated exposure control 2. Adjustment of the mA and/or kV according to patient size 3. Use of iterative reconstruction technique CT maxillofacial without contrast November 11, 2018 INDICATION: Chronic maxillary sinusitis. Productive cough. TECHNIQUE: Multiple axial CT images of the maxilla facial structures were obtained without intravenous contrast. Coronal and sagittal reformats are provided. FINDINGS: There is mild mucosal thickening involving the frontal sinuses. There is mild mucosal thickening of the right maxillary sinus. Sphenoid sinuses well aerated. Right ostiomeatal unit is patent. There is suggestion of a thin membrane traversing the left ostiomeatal unit. Nasal septum is deviated to the right minimally. Skull base is intact. No osseous erosions are identified. Osseous orbits are intact. Globes are spherical and contour. Evaluation of the intracranial soft tissue structures is limited. Nasal bones are intact. IMPRESSION: Mild mucosal inflammatory changes are identified involving the frontal sinuses and right maxillary sinus. Electronically signed by: Aretha Faulkner MD (11/11/2018 3:07 PM) [id number]
== END | disposition home or self-care (01) ==
LOC: KCIC CT 12:21
PROVIDERS: ATTEND Family Medicine
DX: J34.89 Other specified disorders of nose and nasal sinuses (principal); J34.2 Deviated nasal septum; J32.0 Chronic maxillary sinusitis
CPT/HCPCS: 70486

== ENCOUNTER → 2019-02-24 | Outpatient (CLI) | payer OTHER ==
--- NOTE | 2019-02-25 10:36 | KCIC ---
EXAM: CT OF THE CHEST AND ABDOMEN WITHOUT CONTRAST. HISTORY: Cough, left upper quadrant and epigastric pain pain, Haley's esophagus. TECHNIQUE: Computed tomography of the chest and abdomen was performed without intravenous contrast. COMPARISON: 07/17/2016. FINDINGS: Bone windows reveal no suspicious lesions. There are no pathologically enlarged mediastinal or axillary lymph nodes. Calcified mediastinal lymph nodes are likely secondary to old granulomatous disease. There is no pleural or pericardial effusion. The heart is not enlarged. There are atherosclerotic calcifications of the coronary arteries. The main pulmonary artery measures 3.6 cm. There is moderate bilateral gynecomastia. Small foci of scarring in the lingula and left upper lobe are stable chronically. The esophagus is unremarkable by CT without wall thickening. The gastroesophageal junction is in its expected position. Multiple small hypoattenuating hepatic lesions are not clearly changed given differences in conclusion. The largest measures 9 Hounsfield units consistent with a cyst. The gallbladder, pancreas, adrenal glands and left kidney are unremarkable. A cyst at the right renal lower pole measures 2.4 cm. There are calcified granulomas in the spleen. Splenic capsular calcification is chronic and may reflect remote trauma. There are no pathologically enlarged retroperitoneal or mesenteric lymph nodes in this [id number]. The included portions of the colon and small bowel are unremarkable. IMPRESSION: 1. No acute abnormality is appreciated by CT. 2. Enlargement of the main pulmonary artery suggests pulmonary arterial hypertension. *One or more of the following individualized dose reduction techniques were utilized for this examination: 1. Automated exposure control. 2. Adjustment of the mA and/or kV according to patient size. 3. Use of iterative reconstruction technique. Electronically signed by: Myra Larson MD (02/25/2019 10:33 AM) [facility]
== END | disposition home or self-care (01) ==
LOC: KCIC CT 12:37
PROVIDERS: ATTEND Nurse Practitioner Gerontology
DX: K76.89 Other specified diseases of liver (principal); J98.4 Other disorders of lung; I25.10 Atherosclerotic heart disease of native coronary artery without angina pectoris; I89.8 Other specified noninfective disorders of lymphatic vessels and lymph nodes; N62 Hypertrophy of breast; N28.1 Cyst of kidney, acquired; D73.89 Other diseases of spleen; K21.9 Gastro-esophageal reflux disease without esophagitis; K22.70 Barrett's esophagus without dysplasia
CPT/HCPCS: 71250; 74150

== ENCOUNTER → 2019-10-07 | Outpatient (CLI) | payer MEDICARE, OTHER ==
[2019-06-18 11:00] VITALS: BP 125/81
[~2019-10-07] MED LIST changes: +APIX5TAB PO; +CALC-584 PO; +CHOL500050 PO; +LORA10CA PO; +LOSA-73 PO; +METO25TA4 PO; +MULT-245 PO; +OMEG1CAP27 PO; +OMEP40CA45 PO; +TRIA10.8 NS; +UBID100C40 PO
--- NOTE | 2019-10-12 10:19 | SLEEP ---
DATE OF STUDY: 10/07/2019 HOME SLEEP STUDY ATTENDING PHYSICIAN: Tita Chew MD. The patient is a 74-year-old, who weighs 270 pounds with a BMI of 39.9. The patient's Os[place] score was not recorded. The patient underwent home sleep study performed by [facility]. Total recording time was 279 minutes. During the night study, the patient had 37 mixed apneas, 9 obstructive apneas, 2 central apneas and 72 hypopneas. The patient's AHI was 38 per hour. Nocturnal oximetry study revealed an average oxygen saturation 93% with the lowest of 83%. Thirty-eight minutes were spent in oxygen saturation less than 90%. Mean heart rate 60 beats per minute with a maximum of 103 beats per minute. IMPRESSION: 1. Severe obstructive sleep apnea at an AHI of 38 per hour. 2. Nocturnal hypoxia secondary to obstructive sleep apnea. RECOMMENDATIONS: 1. The patient would benefit from in-lab CPAP titration study. However, alternate treatment option would include home auto-titration study. 2. Once the patient is optimally treated with CPAP, then follow up in 4-6 weeks to assess compliance with CPAP and to document clinical improvement. 3. Weight loss is strongly advised. 4. Avoid TRACK SWEEPER depressants. 5. Cautioned regarding driving until symptoms of sleep apnea resolve with the use of CPAP. BLANK SILVA MD DR: MEGAN/pasha JOB#: [id number] / [id number] [facility] TITA CHEW MD
== END | disposition home or self-care (01) ==
LOC: RT 08:07 → MERGE 09:00
PROVIDERS: ATTEND Internal Medicine Cardiovascular Disease
DX: G47.33 Obstructive sleep apnea (adult) (pediatric) (principal); G47.34 Idiopathic sleep related nonobstructive alveolar hypoventilation
CPT/HCPCS: G0399

== ENCOUNTER → 2019-10-15 | Outpatient (CLI) | payer MEDICARE, OTHER ==
[2019-06-18 11:00] VITALS: BP 125/81
== END | disposition home or self-care (01) ==
LOC: LAB 13:39
PROVIDERS: ATTEND Internal Medicine Cardiovascular Disease
DX: Z11.59 Encounter for screening for other viral diseases (principal); I48.91 Unspecified atrial fibrillation
CPT/HCPCS: C9803; U0003; 36415

== ENCOUNTER 2019-10-20 09:44 | Day surgery (SDC) | payer MEDICARE, OTHER ==
[~2019-10-20 09:44] MED LIST changes: +HYDROmorphone 2 MG/ML VIAL IV PRN; +IV RINGERS,LACTATED 1000ML 1,000 ML IV SCH; +LIDOCAINE 1% PF 2 ML VIAL. ID PRN; +MORPHINE SULFATE 2 MG/ML VIAL. IV PRN; +ONDANSETRON PF 4 MG/2 ML VIAL. IV PRN; +PROCHLORPERAZINE 10 MG/2 ML VIAL. IV PRN; +fentaNYL PF VIAL 100 MCG/2 ML VIAL IV PRN
[2019-10-20] MEDS ORDERED: PROPOFOL 10 MG/ML (20ML) VIAL. IV ONE (10:23)
[2019-10-20 10:28] LABS: HEMATOCRIT 42.7 % (39.0-53.0); HEMOGLOBIN 14.6 g/dL (13.0-17.5); RED BLOOD COUNT 4.48 x10^6/uL (4.30-5.70); RED CELL DISTRIBUTION WIDTH 13.2 % (11.5-14.5); WHITE BLOOD COUNT 6.8 x10^3/uL (4.0-11.0)
[2019-10-20] MEDS ORDERED: LIDOCAINE 2% VISCOUS 15 ML SOLUTION. SWSW ONE (10:30)
[2019-10-20] MEDS ORDERED: LIDOCAINE 2% TOPICAL JELLY 30GM TUBE. TP ONE (10:30)
[2019-10-20] MEDS ORDERED: BENZOCAINE ONE 20% MUCOSAL SPRAY. MM (10:30)
[2019-10-20] MEDS ORDERED: LIDOCAINE 2% VISCOUS 15 ML SOLUTION. SWSW PRN (10:30)
--- NOTE | 2019-10-20 10:33 | EKG ---
[facility] [address] [place] [address] Test Date: 2019-10-20 Test Time: 10:28:21 Pat Name: MELANIE LEMUS Department: Room: Gender: M [employer]ist: : 1945 Requested By: LUDWIN CHEW Order Number: [id number] Reading MD: Ludwin Chew MD Measurements Intervals [place] Rate: 57 P: LA: QRS: -14 QRSD: 92 T: 24 QT: 440 QTc: 431 Interpretive Statements Atrial fibrillation with controlled ventricular response Electronically Signed On 11-12-2019 9:42:28 CDT by Ludwin Chew MD
[2019-10-20 10:36] LABS: CALCIUM 9.4 mg/dL (8.5-10.1); GFR 73.5; POTASSIUM 5.3 mmol/L (3.5-5.1)
[2019-10-20 10:37] LABS: PROTHROMBIN TIME PATIENT 15.3 SEC (11.7-14.0)
--- NOTE | 2019-10-20 11:35 | EKG ---
[facility] [address] [place] [address] Test Date: 2019-10-20 Test Time: 11:31:51 Pat Name: MELANIE LEMUS Department: Room: Gender: Director [employer]: : 1945 Requested By: LUDWIN CHEW Order Number: [id number] Reading MD: Ludwin Chew MD Measurements Intervals [place] Rate: 69 P: 34 MT: 206 QRS: -28 QRSD: 104 T: 11 QT: 428 QTc: 460 Interpretive Statements SINUS RHYTHM Electronically Signed On 11-12-2019 9:42:56 CDT by Ludwin Chew MD
[2019-10-20 12:00] VITALS: BP 106/64
--- NOTE | 2019-10-20 12:01 | CARD ---
MR#: [id number] Date of Study: 10/20/2019 Ordering Physician: TITA CORDERO, Referring Physician: TITA CORDERO, Tech: Miladys Vidales APPROVED REPORT EXAM: Transesophageal echocardiogram with color flow Doppler and Synchronized Cardioversion. INDICATION Atrial Fibrillation RISK FACTORS Hypertension Reason For Test : Rule out Intracardiac Thrombus. PROCEDURE After obtaining informed consent, patient underwent transesophageal echo in the PACU. Type of Sedation : General Anesthesia Sedation was administered by Tom Almazan CRNA. Sedation was achieved with Propofol 160mg intravenously. Transesophageal probe was inserted and advanced into esophagus by Lucho Cordero MD. The SONG was performed without complications. Synchronized Cardioversion attempted: Successful Synchronized Cardioversion acheived with 360 Joules after 2 attempt(s). Rhythm following Synchronized Cardioversion: Normal Sinus Rhythm Throughout the procedure, the blood pressure, pulse oximetry, cardiac rhythm, and rate were monitored . The patient tolerated the procedure without adverse effects. Recovery from general anesthesia was une ventful and vital signs were stable. LEFT VENTRICLE The left ventricle is normal size. There is normal left ventricular wall thickness. The Ejection Frac tion is 40-45% There is slight global hypokinesis of the left ventricle. No left ventricle thrombus n oted on this study. RIGHT VENTRICLE The right ventricle is normal size. There is normal right ventricular wall thickness. RV Systolic fun ction is borderline reduced. ATRIA The left atrium is mildly dilated. The right atrium is mildly dilated. The interatrial septum is inta ct with no evidence for an atrial septal defect or patent foramen ovale as noted on 2-D or Doppler im aging. There is no thrombus noted in the left atrial appendage. AORTIC VALVE The aortic valve is thickened but opens well. Doppler and Color Flow revealed no significant aortic r egurgitation. There is no significant aortic valvular stenosis. MITRAL VALVE The mitral valve is normal in structure and function. There is no evidence of mitral valve prolapse. There is no mitral valve stenosis. Doppler and Color-flow revealed trace mitral regurgitation. TRICUSPID VALVE The tricuspid valve is normal in structure and function. Doppler and Color Flow revealed no tricuspid valve regurgitation noted. There is no tricuspid valve stenosis. PULMONIC VALVE The pulmonary valve is normal in structure and function. Doppler and Color Flow revealed no pulmonic valvular regurgitation. There is no pulmonic valvular stenosis. GREAT VESSELS The aortic root is normal in size. The ascending aorta is normal in size. The IVC is normal in size a nd collapses >50% with inspiration. Critical Notification Critical Value: No <Conclusion> The Ejection Fraction is 40-45% There is slight global hypokinesis of the left ventricle. Successful CVN to SR. Signed by : Tita Cordero, Electronically Approved : 10/20/2019 12:01:07
--- NOTE | 2019-10-20 12:23 | HP ---
ADMIT DATE: HISTORY AND PHYSICAL FOR OUTPATIENT ADMISSION REASON FOR ADMISSION: Planned SONG/cardioversion. HISTORY OF PRESENT ILLNESS: The patient is a pleasant 74-year-old man, who comes into the hospital today for a planned cardioversion. He has had symptoms of diastolic heart failure, exertional dyspnea, and palpitations over the last few weeks despite a previous cardioversion. He unfortunately had recurrence of atrial fibrillation despite being on adequate medical therapy. We had a long discussion in the office regarding further plans for repeat intervention and he has ultimately agreed to proceed for a repeat cardioversion to see if this would help improve his symptoms. He denies any syncope. PAST MEDICAL HISTORY: 1. Diastolic heart failure. 2. Obstructive sleep apnea. 3. Hypertension. 4. Dyslipidemia. SOCIAL HISTORY: The patient denies any alcohol, tobacco, or illicit drug use. FAMILY HISTORY: Noncontributory. ALLERGIES: CIPRO AND AMOXICILLIN. REVIEW OF SYSTEMS: Negative for 10 out of 14 systems reviewed, unless otherwise mentioned above in HPI. PHYSICAL EXAMINATION: VITAL SIGNS: Stable. HEAD AND NECK: Unremarkable. CARDIAC: Irregularly irregular without any obvious murmurs, rubs, or gallops. LUNGS: With decreased breath sounds at the bases. ABDOMEN: Obese, protuberant, nontender. EXTREMITIES: Bilateral lower extremity edema with chronic venous insufficiency and 2+ radial pulses. NEUROLOGIC: No focal deficits. MUSCULOSKELETAL: No trauma. SKIN: No rashes. PSYCHIATRIC: Normal mood and affect. DIAGNOSTIC STUDIES: Labs were reviewed. No obvious abnormalities. Potassium is mildly elevated at 5.3. EKG demonstrates atrial fibrillation. IMPRESSION: Atrial fibrillation secondary to likely sleep apnea and chronic diastolic heart failure. PLAN: We will plan for SONG/cardioversion today. Risks and benefits were discussed with the patient. Thank you for this opportunity to care for your patient. TITA CHEW MD DR: EVERT/pasha JOB#: [id number] / [id number]
== END 2019-10-20 12:15 | disposition home or self-care (01) ==
LOC: SURG 09:44
PROVIDERS: ATTEND Internal Medicine Cardiovascular Disease
DX: I48.91 Unspecified atrial fibrillation (principal); I34.0 Nonrheumatic mitral (valve) insufficiency
CPT/HCPCS: 36415; 80048; 85027; 85610; 92960; 93005; 93312; 93320; 93325; J2704

== ENCOUNTER → 2019-11-03 | Outpatient (CLI) | payer MEDICARE, OTHER ==
[2019-10-20 12:00] VITALS: BP 106/64
[~2019-11-03] MED LIST changes: -HYDROmorphone 2 MG/ML VIAL IV PRN; -IV RINGERS,LACTATED 1000ML 1,000 ML IV SCH; -LIDOCAINE 1% PF 2 ML VIAL. ID PRN; -MORPHINE SULFATE 2 MG/ML VIAL. IV PRN; -ONDANSETRON PF 4 MG/2 ML VIAL. IV PRN; -PROCHLORPERAZINE 10 MG/2 ML VIAL. IV PRN; +ZOLPIDEM 5 MG TABLET. PO ONE; -fentaNYL PF VIAL 100 MCG/2 ML VIAL IV PRN
--- NOTE | 2019-11-04 11:34 | SLEEP ---
DATE OF STUDY: 11/03/2019 SLEEP STUDY ATTENDING PHYSICIAN: Tiarra Gurerero M.D. The patient is a 74-year-old, who weighs 267 pounds with a BMI of 40. The patient had a home sleep study and was found to have severe MARIA ISABEL at an AHI of 38 per hour. The patient was referred for in-lab CPAP titration study. During the night study, the patient spent 419 minutes in bed and slept for 323 minutes with a sleep efficiency of 77%. Sleep latency was 9 minutes with a REM latency of 68 minutes. Sleep architecture showed increased stage 1 and stage 2 sleep, normal slow wave and with slightly reduced REM sleep, which was 14% of the total sleep time. EKG monitoring revealed an average heart rate of 57 beats per minute, no sustained arrhythmias observed. PLMS were seen at an index of 60 per hour and 5 per hour caused EEG arousals. The patient was started on CPAP at a pressure of 7 cm water and titrated up to 19 cm water. At the final pressure, the patient slept for 171 minutes including supine and REM sleep. The patient's AHI was reduced to 0 per hour and oxygen saturation has remained above 92%. The patient used a large-sized full-face mask. IMPRESSION: 1. Severe obstructive sleep apnea diagnosed by previous home sleep study. 2. Severe periodic limb movements of sleep. RECOMMENDATIONS: 1. CPAP at 19 cm water completely eliminated the patient's sleep apnea and should be used on a nightly basis. 2. Followup in 4-6 weeks to assess compliance with CPAP and to document clinical improvement. 3. Weight loss is strongly advised. 4. Avoid [employer] depressants. 5. Cautioned regarding driving until symptoms of sleep apnea resolve with the use of CPAP. 6. The patient should also be further evaluated for symptoms of restless legs during the day. BLANK SILVA MD DR: MEGAN/pasha JOB#: [id number] / [id number] TIARRA Chu MD
== END | disposition home or self-care (01) ==
LOC: RT 18:56
PROVIDERS: ATTEND Internal Medicine Critical Care Medicine
DX: G47.33 Obstructive sleep apnea (adult) (pediatric) (principal)
CPT/HCPCS: 95811

== ENCOUNTER → 2020-03-15 | Outpatient (CLI) | payer MEDICARE, OTHER ==
[2020-02-27 10:17] VITALS: BP 118/70
[~2020-03-15] MED LIST changes: +ASPI325T8 PO; +COLC0.6T34 PO; -ENAL10TA PO; +ENAL10TA11 PO; +FURO-68 PO; -ZOLPIDEM 5 MG TABLET. PO ONE
--- NOTE | 2020-03-15 14:11 | KCIC ---
PA and lateral chest x-ray compared to CT the chest dated February 24, 2020 for pericardial effusion shortness of air. FINDINGS: Small bilateral pleural effusions are redemonstrated, and there is likely some atelectasis in left lung base as well. Heart size remains enlarged but grossly unchanged from CT scan. Contour suggests persistent pericardial effusion. Atherosclerosis of the aortic arch is seen. No new lung parenchymal abnormalities are identified. No significant osseous abnormalities. IMPRESSION: 1. Chest x-ray which is grossly stable compared to the prior CT scan, with bibasilar pleural effusions left greater than right, left basilar atelectasis, and probable persistent pericardial effusion. Electronically signed by: Scot Chapman MD (03/15/2020 2:08 PM) [id number]
== END ==
LOC: KCIC 10:56
PROVIDERS: ATTEND Internal Medicine Cardiovascular Disease
DX: I31.3 Pericardial effusion (noninflammatory) (principal); J98.11 Atelectasis; R06.02 Shortness of breath
CPT/HCPCS: 71046

== ENCOUNTER → 2020-03-23 | Outpatient (CLI) | payer MEDICARE, OTHER ==
[2020-02-27 10:17] VITALS: BP 118/70
--- NOTE | 2020-03-23 16:15 | CARD ---
MR#: [id number] Date of Study: 03/23/2020 Ordering Physician: TITA CHEW, Referring Physician: TITA CHEW, Tech: Miladys Vidales APPROVED REPORT EXAM: Two-dimensional and M-mode echocardiogram with Doppler and color Doppler. Other Information HR: 89bpm INDICATION Pericardial Effusion 2D DIMENSIONS RVDd4.7 (2.9-3.5cm)Left Atrium(2D)4.1 (1.6-4.0cm) IVSd1.2 (0.7-1.1cm)Aortic Root(2D)3.7 (2.0-3.7cm) LVDd5.9 (3.9-5.9cm)LVOT Diameter2.1 (1.8-2.4cm) PWd1.0 (0.7-1.1cm)LVDs3.9 (2.5-4.0cm) FS (%) 33.9 %SV108.9 ml LVEF(%)61.9 (>50%) LEFT VENTRICLE The left ventricle is normal size. There is mild to moderate concentric left ventricular hypertrophy. The left ventricular systolic function is mildly diminished. The Ejection Fraction is 45-50%. RIGHT VENTRICLE The right ventricle is normal size. There is normal right ventricular wall thickness. The right ventr icular systolic function is normal. ATRIA The left atrium is mildly dilated. The right atrium size is normal. The interatrial septum is intact with no evidence for an atrial septal defect or patent foramen ovale as noted on 2-D or Doppler imagi ng. AORTIC VALVE The aortic valve is thickened but opens well. Doppler and color-flow analysis was not performed. Ther e is no significant aortic valvular stenosis. MITRAL VALVE The mitral valve is normal in structure and function. There is no evidence of mitral valve prolapse. There is no mitral valve stenosis. Doppler and color-flow analysis was not performed. TRICUSPID VALVE The tricuspid valve is normal in structure and function. Doppler and color-flow analysis was not perf ormed. There is no tricuspid valve stenosis. PULMONIC VALVE The pulmonic valve is not visualized. Doppler and color-flow analysis was not performed. GREAT VESSELS The aortic root is normal in size. The IVC is normal in size and collapses >50% with inspiration. PERICARDIAL EFFUSION There is no evidence of significant pericardial effusion. Critical Notification Critical Value: No <Conclusion> Limited 2D echocardiogram. Doppler and color flow not performed. The left ventricular systolic function is mildly diminished. The Ejection Fraction is 45-50%. There is no evidence of significant pericardial effusion. Signed by : Tino Castrejon, Electronically Approved : 03/23/2020 16:15:30
== END ==
LOC: ECHO 12:36
PROVIDERS: ATTEND Internal Medicine Cardiovascular Disease
DX: I50.30 Unspecified diastolic (congestive) heart failure (principal); I51.7 Cardiomegaly
CPT/HCPCS: 93306

== ENCOUNTER → 2020-05-22 | Outpatient (CLI) | payer MEDICARE, OTHER ==
[2020-02-27 10:17] VITALS: BP 118/70
--- NOTE | 2020-05-22 13:07 | CARD ---
MR#: [id number] Date of Study: 05/22/2020 Ordering Physician: TITA CHEW, Referring Physician: TITA CHEW, Tech: APPROVED REPORT Procedure: Loop recorder implantation Indication: Atrial fibrillation Procedure details: After appropriate informed consent the left chest was prepped and draped in usual sterile fashion. 2 0 mL of 1% lidocaine was instilled at the rib space around T4. A incision was made using a 11 blade scalpel over approximately 0.25 inches. Next a subcutaneous tunnel was made through which a [employer] loop recorder with serial #[id number] was positioned the subcutaneous space without any difficulty. The incision was closed with one 3-0 absorbable suture and Steri-Strips were placed. A sterile dressing was applied. No acute complications are noted. <Conclusion> 1. Successful implantation of a loop recorder for monitoring of atrial fibrillation Signed by : Tita Chew, Electronically Approved : 05/22/2020 13:07:21
== END | disposition home or self-care (01) ==
LOC: LINQ 10:01
PROVIDERS: ATTEND Internal Medicine Cardiovascular Disease
DX: I48.91 Unspecified atrial fibrillation (principal); E78.00 Pure hypercholesterolemia, unspecified; I10 Essential (primary) hypertension; K21.9 Gastro-esophageal reflux disease without esophagitis; E66.9 Obesity, unspecified; G47.30 Sleep apnea, unspecified; M19.90 Unspecified osteoarthritis, unspecified site; Z87.891 Personal history of nicotine dependence; Z79.82 Long term (current) use of aspirin; Z79.899 Other long term (current) drug therapy; Z98.890 Other specified postprocedural states; Z88.1 Allergy status to other antibiotic agents; Z88.8 Allergy status to other drugs, medicaments and biological substances
CPT/HCPCS: 33285; C1764

== ENCOUNTER → 2020-08-07 | Outpatient (CLI) | payer MEDICARE ==
[2020-02-27 10:17] VITALS: BP 118/70
--- NOTE | 2020-08-07 15:56 | CARD ---
MR#: [id number] Date of Study: 08/07/2020 Ordering Physician: TITA CHEW, Referring Physician: TITA CHEW, Tech: Miladys Vidales, [facility] APPROVED REPORT EXAM: Two-dimensional and M-mode echocardiogram with Doppler and color Doppler. Other Information Quality : AverageHR: 78bpm INDICATION Atrial Fibrillation 2D DIMENSIONS RVDd5.0 (2.9-3.5cm)Left Atrium(2D)3.5 (1.6-4.0cm) IVSd1.1 (0.7-1.1cm)Aortic Root(2D)3.5 (2.0-3.7cm) LVDd5.6 (3.9-5.9cm)LVOT Diameter2.0 (1.8-2.4cm) PWd1.1 (0.7-1.1cm)LVDs2.7 (2.5-4.0cm) FS (%) 51.1 %SV126.3 ml Aortic Valve AoV Peak Nathen.163.5cm/sAoV VTI33.2cm AO Peak GR.10.7mmHgLVOT Peak Nathen.92.2cm/s LVOT VTI 20.78cmAO Mean GR.6mmHg ILA (VMAX)1.30jc5WGJ (VTI)2.02cm2 Mitral Valve MV E Llljmunu68.9cm/sMV DECEL BVBW832lr MV A Zssrllpy03.8cm/sMV PDP28di E/A Ratio1.1MVA (PHT)2.85cm2 TDI E/Lateral E'9.1E/Medial E'9.7 Pulmonary Valve PV Peak Usktnrxe76.1cm/sPV Peak Grad.4mmHg Tricuspid Valve TR P. Ebvkycwp182fu/sRAP WOORRRNY6xlDb TR Peak Gr.23qfCePMSU72avPh Pulmonary Vein S1 Ubywjxjt58.0cm/sD2 Flyrcrqe21.9cm/s PVa ikjsohlg609taxn LEFT VENTRICLE The left ventricle is normal size. There is borderline concentric left ventricular hypertrophy. The l eft ventricular systolic function is normal and the ejection fraction is within normal range. The Eje ction Fraction is 55-60%. There is normal LV segmental wall motion. Transmitral Doppler flow pattern is Grade II-pseudonormal filling dynamics. RIGHT VENTRICLE The right ventricle is normal size. There is normal right ventricular wall thickness. The right ventr icular systolic function is normal. ATRIA The left atrium size is normal. The right atrium size is normal. The interatrial septum is intact wit h no evidence for an atrial septal defect or patent foramen ovale as noted on 2-D or Doppler imaging. AORTIC VALVE The aortic valve is thickened but opens well. Doppler and Color Flow revealed trace aortic regurgitat ion. There is no significant aortic valvular stenosis. Calculated aortic valve area is 1.97 cm2 with maximum pressure gradient of 13 mmHg and mean pressure gradient of 7 mmHg. MITRAL VALVE The mitral valve is normal in structure and function. There is no evidence of mitral valve prolapse. There is no mitral valve stenosis. Doppler and Color-flow revealed trace mitral regurgitation. TRICUSPID VALVE The tricuspid valve is not well visualized. Doppler and Color Flow revealed trace tricuspid regurgita tion. There is no tricuspid valve stenosis. PULMONIC VALVE The pulmonic valve is not well visualized. Doppler and Color Flow revealed trace pulmonic valvular re gurgitation. GREAT VESSELS The aortic root is normal in size. The ascending aorta is normal in size. The IVC is normal in size a nd collapses >50% with inspiration. PERICARDIAL EFFUSION There is no evidence of significant pericardial effusion. Critical Notification Critical Value: No <Conclusion> The left ventricle is normal size. The left ventricular systolic function is normal and the ejection fraction is within normal range. The Ejection Fraction is 55-60%. There is borderline concentric left ventricular hypertrophy. Doppler and Color Flow revealed trace aortic regurgitation. There is no significant aortic valvular stenosis. Doppler and Color-flow revealed trace mitral regurgitation. Doppler and Color Flow revealed trace tricuspid regurgitation. Signed by : Keith Duke MD Electronically Approved : 08/07/2020 15:56:09
== END ==
LOC: ECHO 10:54
PROVIDERS: ATTEND Internal Medicine Cardiovascular Disease
DX: I48.0 Paroxysmal atrial fibrillation (principal); I51.7 Cardiomegaly
CPT/HCPCS: 93306

== ENCOUNTER → 2020-08-07 | Outpatient (CLI) | payer MEDICARE ==
[2020-02-27 10:17] VITALS: BP 118/70
[~2020-08-07] MED LIST changes: +CONTRAST GIVEN. MC PRN; +IOHEXOL 240 MG/ML 50ML VIAL. PO ONE; +IOHEXOL 300 MG/ML 100ML VIAL. IV ONE
[2020-08-07 09:00] LABS: CREATININE 0.8 mg/dL (0.7-1.3); GFR 94.8
--- NOTE | 2020-08-07 15:49 | RAD ---
EXAMINATION: CT PELVIS W, 08/07/2020 8:30 AM CLINICAL INDICATION: Suprapubic pain, acute COMPARISON: CT chest abdomen pelvis 02/24/2020 TECHNIQUE: Helical CT imaging performed of the pelvis after administration of 75 mg Omnipaque 300 int ravenous contrast. Sagittal and coronal reformats were obtained. One or more of the following individualized dose reduction techniques were utilized for this examinat ion: 1. Automated exposure control 2. Adjustment of the mA and/or kV according to patient size 3. Use of iterative reconstruction technique. FINDINGS: There is a 2 cm hypodense lesion in right inferior renal pole with slightly greater than fl uid density, unchanged. The kidneys are not completely visualized. Visualized portion of the ureters are normal. Bladder is normal. The prostate gland is normal. There is minimal sigmoid diverticulosis. The rest of the visualized portion of the bowel is unremarkable. Distal abdominal aorta is normal in caliber. There is mild calcified aortoiliac atherosclerosis. There is no lymphadenopathy in the pelv is. No free fluid or free air. No acute fracture or suspicious osseous lesion. There bilateral pars d efects at L5 with grade 1 spondylolisthesis and severe degenerative disc disease at L5-S1. Severe johnson ateral foraminal narrowing at L5-S1. Mild degenerative disc disease at L4-L5. There is mild osteoarth rosis of the left hip. Mild degenerative joint disease of the pubic symphysis and sacroiliac joints. IMPRESSION: 1. No acute abnormality in the pelvis. 2. Unchanged 3 cm hypodense lesion in the inferior right renal pole. This has slightly greater than f luid density and could be a complicated cyst. 3 L5 spondylolysis with grade 1 spondylolisthesis, severe degenerative disc disease and severe bilate ral foraminal narrowing at L5-S1. Electronically signed by: Janay Avitia MD (08/07/2020 3:46 PM) [id number]
== END ==
LOC: CT 09:06
PROVIDERS: ATTEND Family Medicine
DX: M51.37 Other intervertebral disc degeneration, lumbosacral region (principal); M48.07 Spinal stenosis, lumbosacral region; M47.816 Spondylosis without myelopathy or radiculopathy, lumbar region; M43.16 Spondylolisthesis, lumbar region
CPT/HCPCS: 36415; 72193; 82565; Q9966; Q9967

== ENCOUNTER → 2021-08-10 | Outpatient (CLI) | payer MEDICARE ==
[2020-02-27 10:17] VITALS: BP 118/70
[~2021-08-10] MED LIST changes: -CONTRAST GIVEN. MC PRN; -IOHEXOL 240 MG/ML 50ML VIAL. PO ONE; -IOHEXOL 300 MG/ML 100ML VIAL. IV ONE; -OMEP40CA45 PO; +OMEP40CA7 PO
--- NOTE | 2021-08-10 18:34 | CARD ---
MR#: [id number] Date of Study: 08/10/2021 Ordering Physician: TITA CHEW, Referring Physician: TITA CHEW, Tech: Kiran Quintanilla [facility] APPROVED REPORT EXAM: Two-dimensional and M-mode echocardiogram with Doppler and color Doppler. Other Information Quality : FairHR: 56bpm Rhythm : NSRTechnically limited study due to body habitus. INDICATION Hypertension/HCVD Surgery/Intervention Previous atrial fibrillation ablation. RISK FACTORS Hypertension Obesity 2D DIMENSIONS Left Atrium(2D)4.2 (1.6-4.0cm)IVSd1.0 (0.7-1.1cm) Aortic Root(2D)3.5 (2.0-3.7cm)LVDd5.3 (3.9-5.9cm) LVOT Diameter2.1 (1.8-2.4cm)PWd0.9 (0.7-1.1cm) LA Nghhju41 (18-58mL)LVDs3.3 (2.5-4.0cm) FS (%) 37.9 %SV91.0 ml LVEF(%)67.6 (>50%) Aortic Valve AoV Peak Nathen.146.7cm/sAoV VTI34.6cm AO Peak GR.8.6mmHgLVOT Peak Nathen.78.5cm/s LVOT VTI 18.23cmAO Mean GR.6mmHg ILA (VMAX)1.88gv3OZO (VTI)1.87cm2 Mitral Valve MV E Nnarzuny65.8cm/sMV DECEL DTUI325mv MV A Djpozkdz21.6cm/sMV MUU17zm E/A Ratio1.2MVA (PHT)2.91cm2 TDI E/Lateral E'11.5E/Medial E'10.6 Pulmonary Valve PV Peak Amksoums40.4cm/sPV Peak Grad.3mmHg Tricuspid Valve TR P. Sczjejii198uz/sTR Peak Gr.24mmHg Pulmonary Vein S1 Lgmfmdzy44.5cm/sD2 Xxwxklwm84.0cm/s LEFT VENTRICLE The left ventricle is normal size. There is normal left ventricular wall thickness. The left ventricu lar systolic function is normal. There is normal LV segmental wall motion. The ejection fraction is 5 5 to 60%. Transmitral Doppler flow pattern is Grade II-pseudonormal filling dynamics. No left ventric le thrombus noted on this study. There is no ventricular septal defect visualized. There is no left v entricular aneurysm. There is no mass noted in the left ventricle. RIGHT VENTRICLE The right ventricle is normal size. There is normal right ventricular wall thickness. The right ventr icular systolic function is normal. ATRIA The left atrium is mildly dilated. The right atrium size is normal. The interatrial septum is intact with no evidence for an atrial septal defect or patent foramen ovale as noted on 2-D or Doppler imagi ng. AORTIC VALVE The aortic valve is mildly sclerotic. Doppler and Color Flow revealed no significant aortic regurgita tion. There is no significant aortic valvular stenosis. There is no aortic valvular vegetation. MITRAL VALVE The mitral valve is thickened but opens well. There is no evidence of mitral valve prolapse. There is no mitral valve stenosis. Doppler and Color-flow revealed trace mitral regurgitation. TRICUSPID VALVE The tricuspid valve is normal in structure and function. Doppler and Color Flow revealed trace to mil d tricuspid regurgitation. There is no tricuspid valve prolapse or vegetation. There is no tricuspid valve stenosis. PULMONIC VALVE The pulmonic valve is not well seen. Doppler and Color Flow revealed no pulmonic valvular regurgitati on. There is no pulmonic valvular stenosis. GREAT VESSELS The aortic root is normal in size. The ascending aorta is normal in size. The pulmonary artery is nor mal. The IVC is normal in size and collapses >50% with inspiration. PERICARDIAL EFFUSION There is no pleural effusion. There is no evidence of significant pericardial effusion. Critical Notification Critical Value: No <Conclusion> There is normal LV segmental wall motion. The ejection fraction is 55 to 60%. Transmitral Doppler flow pattern is Grade II-pseudonormal filling dynamics. Trace mitral regurgitation. Trace to mild tricuspid regurgitation. There is no evidence of significant pericardial effusion. Signed by : Tino Castrejon, Electronically Approved : 08/10/2021 18:33:32
== END ==
LOC: ECHO 14:24
PROVIDERS: ATTEND Internal Medicine Cardiovascular Disease
DX: I08.3 Combined rheumatic disorders of mitral, aortic and tricuspid valves (principal); I10 Essential (primary) hypertension
CPT/HCPCS: 93306; C8929

== ENCOUNTER 2021-08-29 10:59 | Emergency (ER) | payer MEDICARE ==
[~2021-08-29] VITALS: Ht 175.3 cm; Wt 119.1 kg
--- NOTE | 2021-08-29 11:24 | PHYS DOC ---
Past Medical History Past Medical History: A-Fib, GERD, High Cholesterol, Other Additional Past Medical Histor: pre diabetes, protein in urine Past Surgical History: Knee Replacement, Other Additional Past Surgical Histo: cardiac cath, no stents.; L knee; vein stripping; cardiac ablation Smoking Status: Former Smoker Alcohol Use: Sober Drug Use: None Adult General Chief Complaint Chief Complaint: CHEST PAIN [facility] [place] Patient is a 76 year old male who presents with chest pain. Patient complains of pain over the right lower portion of the chest. He has been having intermittent symptoms for 7 to 10 days. Pain is sometimes exertional but also occurs at rest. Pain is worse sometimes when he takes a deep breath. He had an episode that started earlier today while he was at rest and did not resolve spontaneously which is what prompted his ER visit. At the time of this initial interview, his symptoms have improved. He has no known history of coronary artery disease but is followed by [facility] for history of atrial fibrillation. He is status post ablation and does take Eliquis. No recent illness, fever, cough, chills. No nausea or vomiting. No diaphoresis. No dizziness or lightheadedness Review of Systems Review of Systems Constitutional: Denies fever or chills Eyes: Denies change in visual acuity, redness, or eye pain HENT: Denies nasal congestion or sore throat Respiratory: Denies cough or shortness of breath Cardiovascular: As documented in HPI GI: Denies abdominal pain : Denies dysuria or hematuria Musculoskeletal: Denies back pain Integument: Denies rash Neurologic: Denies headache Endocrine: Denies All other systems were reviewed and found to be within normal limits, except as documented in this note. Allergies Allergies Allergies Coded Allergies Type Severity Reaction Last Updated Verified amoxicillin Allergy Intermediate Swelling 10/20/19 Yes azithromycin Adverse Reaction Intermediate Nausea and Vomiting 10/20/19 Yes ciprofloxacin Adverse Reaction Intermediate Nausea and Vomiting 10/20/19 Yes Physical Exam Physical Exam Constitutional: Well developed, well nourished, no acute distress, non-toxic appearance HENT: Normocephalic, atraumatic, bilateral external ears normal, oropharynx moist Eyes: PERRLA, EOMI, conjunctiva normal Neck: Normal range of motion, no tenderness, supple Cardiovascular:Heart rate regular rhythm Lungs & Thorax: Bilateral breath sounds clear Abdomen is soft/NTTP Skin: Warm, dry, no erythema, no rash. Back: Normal ROM Extremities: No tenderness, no cyanosis, no clubbing, ROM intact, no edema. Neurologic: Alert and oriented X 3 Psychologic: Affect normal Current Patient Data Vital Signs Vital Signs Date Time Temp Pulse Resp B/P (MAP) Pulse Ox O2 Delivery O2 Flow Rate FiO2 08/29/21 10:59 98.6 20 196/84 (121) Room Air 98.6 Lab Values Laboratory Tests Test 08/29/21 11:25 White Blood Count 6.5 x10^3/uL (4.0-11.0) Red Blood Count 4.34 x10^6/uL (4.30-5.70) Hemoglobin 13.9 g/dL (13.0-17.5) Hematocrit 40.1 % (39.0-53.0) Mean Corpuscular Volume 92 fL (79-100) Mean Corpuscular Hemoglobin 32 pg (25-35) Mean Corpuscular Hemoglobin Concent 35 g/dL (31-37) Red Cell Distribution Width 13.1 % (11.5-14.5) Platelet Count 202 x10^3/uL (140-400) Neutrophils (%) (Auto) 69 % (31-73) Lymphocytes (%) (Auto) 21 % (24-48) L Monocytes (%) (Auto) 8 % (0-9) Eosinophils (%) (Auto) 2 % (0-3) Basophils (%) (Auto) 1 % (0-3) Neutrophils # (Auto) 4.5 x10^3/uL (1.8-7.7) Lymphocytes # (Auto) 1.4 x10^3/uL (1.0-4.8) Monocytes # (Auto) 0.5 x10^3/uL (0.0-1.1) Eosinophils # (Auto) 0.1 x10^3/uL (0.0-0.7) Basophils # (Auto) 0.0 x10^3/uL (0.0-0.2) Sodium Level 142 mmol/L (136-145) Potassium Level 4.4 mmol/L (3.5-5.1) Chloride Level 106 mmol/L (98-107) Carbon Dioxide Level 29 mmol/L (21-32) Anion Gap 7 (6-14) Blood Urea Nitrogen 14 mg/dL (8-26) Creatinine 0.7 mg/dL (0.7-1.3) Estimated GFR (Cockcroft-Gault) 110.2 Glucose Level 144 mg/dL (70-99) H Calcium Level 9.4 mg/dL (8.5-10.1) Magnesium Level 2.0 mg/dL (1.8-2.4) Troponin I High Sensitivity 11 ng/L (4-75) RT-Pid-N-Type Natriuretic Peptide 123 pg/mL (0-124) Laboratory Tests 08/29/21 11:25 Laboratory Tests 08/29/21 11:25 EKG EKG 11:00: Sinus rhythm. No STEMI. Has interventricular conduction delay which appears baseline from most recent available and 2019. Radiology/Procedures Radiology/Procedures [] Course & Med Decision Making Course & Med Decision Making Pertinent Labs and Imaging studies reviewed. (See chart for details) Patient is evaluated on arrival to his room. Complains of chest pain that has now resolved. Had episode this morning that was nonexertional and lasted several hours. Has been having symptoms over the last week. Standard work-up is ordered. His initial EKG is compared to prior and does not appear significantly changed. He had already contacted Dr. Chew's office to schedule a follow-up which is 2 days from now. He had recently been evaluated with echocardiogram but has not undergone stress testing. He reports his last catheterization to have been about 10 years earlier and was clean according to the patient. 12:50: All results are reviewed with the patient and all of his questions were answered. His pain does not seem cardiac at this time but given that he already has an appointment pending in 2 days I reached out to cardiology who sent the physician specimen preparation assistant for consultation in the emergency room. 13:15: Patient seen by cardiology. Again the pain is not felt to be cardiac related. Recommending ultrasound of the gallbladder to rule out any gallbladder disease. 14:20: All results are reviewed and again discussed with the patient. He went underwent ultrasound at the recommendation of cardiology. Gallstones are not seen and no evidence for cholecystitis or sludge. Currently is pain-free and is stable for discharge home. Given the chronicity of his presentation, single troponin rules out cardiac ischemia. He already has pending follow-up with cardiology in 2 days from now. Patient is agreeable to plan of care. Return precautions discussed and he will come back to the ER for any new or severely worsening symptoms. Dragon Disclaimer Dragon Disclaimer This electronic medical record was generated, in whole or in part, using a voice recognition dictation system. Departure Departure Impression: Primary Impression: Chest pain Disposition: HOME / SELF CARE / HOMELESS Condition: GOOD Referrals: AMBER GRIFFIN MD (PCP) TITA CHEW MD Patient Instructions: Chest Pain (Nonspecific) RAMA HURT DO Aug 29, 2021 11:24
[2021-08-29 11:38] LABS: BASO % 1 % (0-3); EOS # 0.1 x10^3/uL (0.0-0.7); EOS % 2 % (0-3); HEMATOCRIT 40.1 % (39.0-53.0); HEMOGLOBIN 13.9 g/dL (13.0-17.5); LYMPH # 1.4 x10^3/uL (1.0-4.8); LYMPH % 21 % (24-48); MEAN CORPUSCULAR HEMOGLOBIN 32 pg (25-35); MEAN CORPUSCULAR HGB CONC 35 g/dL (31-37); MEAN CORPUSCULAR VOLUME 92 fL (79-100); MONO # 0.5 x10^3/uL (0.0-1.1); MONO % 8 % (0-9); NEUT # 4.5 x10^3/uL (1.8-7.7); NEUT % 69 % (31-73); PLATELET COUNT 202 x10^3/uL (140-400); RED BLOOD COUNT 4.34 x10^6/uL (4.30-5.70); RED CELL DISTRIBUTION WIDTH 13.1 % (11.5-14.5); WHITE BLOOD COUNT 6.5 x10^3/uL (4.0-11.0)
[2021-08-29 11:50] LABS: CALCIUM 9.4 mg/dL (8.5-10.1); CREATININE 0.7 mg/dL (0.7-1.3); GFR 110.2; POTASSIUM 4.4 mmol/L (3.5-5.1)
--- NOTE | 2021-08-29 12:07 | RAD ---
XR CHEST 1V History: Reason: chest pain / Spl. Instructions: / History: Comparison: March 15, 2022 Findings: Mild ill-defined mid and bibasilar opacities. No pleural effusion. No pneumothorax. Normal heart size . Impression: 1. Mild ill-defined mid and bibasilar opacities, may represent atelectasis or developing infiltrates . If persistent clinical concern, recommend follow-up. Electronically signed by: Humberto Perez DO (08/29/2021 12:05 PM) [id number]
--- NOTE | 2021-08-29 12:52 | PDOC2 ---
JACLYN ISABEL INFANT CAREGIVER 08/29/21 1252: CARDIAC CONSULT DATE OF CONSULT Date of Consult DATE: 08/29/21 TIME: 12:44 REASON FOR CONSULT Reason for Consult: Chest pain REFERRING PHYSICIAN Referring Physician: Deon SOURCE Source: Chart review, Patient HISTORY OF PRESENT ILLNESS HISTORY OF PRESENT ILLNESS This is a pleasant 76 yo male admitted for complains of chest pain. This started a bout a week and a half ago describing as sharp that starts right side lower ribcage region that goed to epigastric lower sternal region. No jaw tightness, SOA or palpitations. No nausea or vomiting. Denies any black stools. He did have some episodes of indigestion but no heartburn. No frequent throat clearing or intractable coughing at night. No falls or any recent injury. No recent fever or chills. Sometimes it also hurts when taking a deep breath. He talked to his PCP and told him to double his prilosec to bid. Denies NSAID use. PAST MEDICAL HISTORY Cardiovascular: AFIB, CHF, HTN, Other (NICM; chronic lymphedema) Pulmonary: Asthma, Other (MARIA ISABEL) GI: GERD (Barrets esophagus) Musculoskeletal: Osteoarthritis PAST SURGICAL HISTORY Past Surgical History: Total knee replacement (left), Other (S/P cardiac ablation) FAMILY HISTORY Family History: Diabetes SOCIAL HISTORY Smoke: No ALCOHOL: none Drugs: None Lives: with Family ALLERGIES ALLERGIES: Coded Allergies: amoxicillin (Verified Allergy, Intermediate, Swelling, 10/20/19) azithromycin (Verified Adverse Reaction, Intermediate, Nausea and Vomiting, 10/20/19) ciprofloxacin (Verified Adverse Reaction, Intermediate, Nausea and Vomiting, 10/20/19) ROS Review of System 14 point ROS evlauated with pertinent positives noted per HPI PHYSICAL EXAM General: Alert, Oriented X3, Cooperative, No acute distress HEENT: Atraumatic, Mucous membr. moist/pink Lungs: Clear to auscultation, Normal air movement Heart: Regular rate (SR), Normal S1, Normal S2, No murmurs Abdomen: Soft, No tenderness Extremities: No cyanosis, No edema Skin: No breakdown, No significant lesion Neuro: Normal speech, Sensation intact Psych/Mental Status: Mental status NL, Mood NL MUSCULOSKELETAL: Osteoarthritic changes both hands VITALS/I&O VITALS/I&O: Vital Signs Date Time Temp Pulse Resp B/P (MAP) Pulse Ox O2 Delivery O2 Flow Rate FiO2 08/29/21 10:59 98.6 20 196/84 (121) Room Air 98.6 LABS Lab: Laboratory Tests Test 08/29/21 11:25 White Blood Count 6.5 x10^3/uL (4.0-11.0) Red Blood Count 4.34 x10^6/uL (4.30-5.70) Hemoglobin 13.9 g/dL (13.0-17.5) Hematocrit 40.1 % (39.0-53.0) Mean Corpuscular Volume 92 fL (79-100) Mean Corpuscular Hemoglobin 32 pg (25-35) Mean Corpuscular Hemoglobin Concent 35 g/dL (31-37) Red Cell Distribution Width 13.1 % (11.5-14.5) Platelet Count 202 x10^3/uL (140-400) Neutrophils (%) (Auto) 69 % (31-73) Lymphocytes (%) (Auto) 21 % (24-48) L Monocytes (%) (Auto) 8 % (0-9) Eosinophils (%) (Auto) 2 % (0-3) Basophils (%) (Auto) 1 % (0-3) Neutrophils # (Auto) 4.5 x10^3/uL (1.8-7.7) Lymphocytes # (Auto) 1.4 x10^3/uL (1.0-4.8) Monocytes # (Auto) 0.5 x10^3/uL (0.0-1.1) Eosinophils # (Auto) 0.1 x10^3/uL (0.0-0.7) Basophils # (Auto) 0.0 x10^3/uL (0.0-0.2) Sodium Level 142 mmol/L (136-145) Potassium Level 4.4 mmol/L (3.5-5.1) Chloride Level 106 mmol/L (98-107) Carbon Dioxide Level 29 mmol/L (21-32) Anion Gap 7 (6-14) Blood Urea Nitrogen 14 mg/dL (8-26) Creatinine 0.7 mg/dL (0.7-1.3) Estimated GFR (Cockcroft-Gault) 110.2 Glucose Level 144 mg/dL (70-99) H Calcium Level 9.4 mg/dL (8.5-10.1) Troponin I High Sensitivity 11 ng/L (4-75) Laboratory Tests 08/29/21 11:25 Laboratory Tests 08/29/21 11:25 ECHOCARDIOGRAM ECHOCARDIOGRAM <Conclusion> There is normal LV segmental wall motion. The ejection fraction is 55 to 60%. Transmitral Doppler flow pattern is Grade II-pseudonormal filling dynamics. Trace mitral regurgitation. Trace to mild tricuspid regurgitation. There is no evidence of significant pericardial effusion. DATE: 08/10/21 1721 STRESS TEST STRESS TEST Conclusion 1. No evidence of EKG changes with stress testing. 2. Small fixed apical defect, suggestive of prior infarct. No ischemia. 3. Low risk study. 4. EF > 55%. DATE: 07/20/19 0914 ASSESSMENT/PLAN ASSESSMENT/PLAN 1. Atypical chest pain: doubt ACS. differential include GB disease, esophageal spasm, PUD, dyspepsia 2. HTN: initially labile, better 3. HLP 4. PAFIB: S/P ablation 5. Hx of NICM: recovered, recent TTE as above 6. ILR in situ: [employer]. No arrhythmias so far on tele 7. MARIA ISABEL: CPAP use 8. Obesity Recommendations 1. Resume Home BP regimen 2. Eliquis for stroke prevention 3. Trend troponin. Recommend GB sono.if this is negative then will consider changing metoprolol to cardizem for esophageal spasm 4. Continue PPI at higher dose TITA CHEW MD 08/29/211957: CARDIAC CONSULT ASSESSMENT/PLAN ASSESSMENT/PLAN Patient seen and examined. Agree with above nurse practitioner note. Supportive care for now. Low suspicion for primary cardiac process. JACLYN ISABEL INFANT CAREGIVER Aug 29, 2021 12:52 TITA CHEW MD Aug 29, 2021 19:58
[2021-08-29 14:12] VITALS: BP 155/74
--- NOTE | 2021-08-29 14:17 | RAD ---
INDICATION: Reason: right lower chest pain, Eval gall bladder / Spl. Instructions: / History: COMPARISON: None. TECHNIQUE: Grayscale and color ultrasound images obtained through the abdomen. FINDINGS: Pancreas: Limited by bowel gas. Liver: Mildly echogenic which can be seen with mild fatty infiltration nonspecific. 20 mm cyst Gallbladder: No definite stones or wall thickening. Common Bile Duct: Not dilated. Right Kidney: No hydronephrosis. 26 mm cystic lesion partially seen. Portions obscured by overlying s tructures. Aorta/IVC: Limited visualization secondary to overlying structures obscuring. IMPRESSION: * No common bile duct dilation or definite gallstones. Electronically signed by: Dannie Fontana MD (08/29/2021 2:15 PM) [id number]
--- NOTE | 2021-08-30 08:17 | EKG ---
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
== END 2021-08-29 14:30 | disposition home or self-care (01) ==
LOC: ER 10:59
DX: R07.89 Other chest pain (principal); I48.91 Unspecified atrial fibrillation; K21.9 Gastro-esophageal reflux disease without esophagitis; E78.00 Pure hypercholesterolemia, unspecified; Z87.891 Personal history of nicotine dependence; Z88.1 Allergy status to other antibiotic agents
CPT/HCPCS: 36415; 71045; 76705; 80048; 83735; 83880; 84484; 85025; 93005; 99285-25